=== PATIENT | female | born 1985 | race Caucasian/White ===

== ENCOUNTER 2019-08-03 15:44 | Emergency (ER) | payer OTHER, SELFPAY ==
[2019-08-03 15:55] VITALS: BP 132/76; PULSE 75; RESP 20; TEMP 36.8; O2SAT 100
--- NOTE | 2019-08-03 16:04 | ED.URI ---
HPI - URI/Sore Throat General Chief Complaint: Upper Respiratory Infection Stated Complaint: body aches/fever Time Seen by Provider: 08/03/19 16:05 Source: patient and RN notes reviewed Mode of arrival: ambulatory Limitations: no limitations History of Present Illness HPI Narrative: 34-year-old female presents with concern for fever, body aches, cough, rhinorrhea that started last night. Reports both of her children tested positive for influenza B. 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 elicited complaint: fever Related Data Home Medications Medication Instructions Recorded Confirmed hydrocodone-acetaminophen See Rx Instructions .ROUTE .COMPLEX 08/03/19 08/03/19 Allergies Allergy/AdvReac Type Severity Reaction Status Date / Time No Known Allergies Allergy Verified 11/08/18 11:37 Review of Systems Review of Systems: Narrative: CONSTITUTIONAL: Reports malaise, chills, sweats, or fever. EYES: Denies visual changes, redness, or discharge. ENT: Reports rhinorrhea, congestion. Denies sinus pain, otalgia and sore throat. CARDIOVASCULAR: Denies chest pain, palpitations, or edema. RESPIRATORY: Reports cough. Denies dyspnea. GASTROINTESTINAL: Denies abdominal pain, nausea, vomiting, diarrhea SKIN: Denies rash or itching. MUSCULOSKELETAL: Reports myalgia. NEUROLOGIC: Reports headache. All systems reviewed & are unremarkable except as noted in HPI and below PMFSH Social History Social History Gender identity (if verbalized by the patient): Female Comments At time of signature, agree with nursing past medical, surgical, social and family history. There is no relevant family history pertinent to the presenting complaint Exam Narrative: Exam Narrative: GENERAL: Well-appearing, well-nourished, and in no acute distress. HEAD: Normocephalic EYES: PERRLA, conjunctivae clear ENT: Nares clear, turbinates erythematous, clear discharge. Mucous membranes moist. TM pearly pagan with dull light reflex bilaterally; no tragal tenderness. Oropharynx not erythematous without lesions. Tonsils not enlarged and without exudate, no drooling, no hoarseness, no trismus, uvula midline. NECK: Supple. Cervical lymphadenopathy CHEST: Clear to auscultation, breath sounds equal. No wheezing, rhonchi, rales, or stridor. No respiratory distress, speaks in full sentences. HEART: Regular rate and rhythm. No murmur heard. Normal peripheral pulses. SKIN: Warm, dry, no rash. NEURO: Alert and oriented x3. PSYCH: Normal mood and affect Course Course Emergency Course: Patient is aware of diagnosis, understands and agrees to treatment plan. Anticipatory guidance given. Patient agrees to follow-up as directed and is aware of reasons to seek care at the emergency department. Portions of this record may have been created with voice recognition software Vital Signs Vital signs: Vital Signs Temperature 98.2 F 08/03/19 15:55 Pulse Rate 75 08/03/19 15:55 Respiratory Rate 20 08/03/19 15:55 Blood Pressure 132/76 08/03/19 15:55 Pulse Oximetry 100 08/03/19 15:55 Temperature 98.2 F 08/03/19 15:55 Pulse Rate 75 08/03/19 15:55 Respiratory Rate 20 08/03/19 15:55 Blood Pressure 132/76 08/03/19 15:55 Pulse Oximetry 100 08/03/19 15:55 Reviewed. MDM - URI/Sore Throat MDM Narrative Medical decision making narrative: Differential diagnosis considered: Strep pharyngitis, allergic rhinitis, upper respiratory tract infection, sinusitis, rhinosinusitis, nasopharyngitis. viral pharyngitis, otitis media, otitis externa, pneumonia, bronchitis, viral cough syndrome, viral syndrome, and influenza. Exam findings show no acute concerns or changes; patient is non-toxic appearing and is in no distress. Patient is appropriate for outpatient treatment and follow-up. Lab Data Attestation: I reviewed the patient's lab results. Labs: Influenza A Screen Negative Reference Range: Negative Influenza B Screen Negative
== END 2019-08-03 16:23 | disposition home or self-care (01) ==
PROVIDERS: Emergency Provider Nurse Practitioner; PCP Family Medicine
DX: Z20.828 Contact with and (suspected) exposure to other viral communicable diseases (principal); R50.9 Fever, unspecified; R52 Pain, unspecified; R05 Cough; J34.89 Other specified disorders of nose and nasal sinuses; Z79.891 Long term (current) use of opiate analgesic
CPT/HCPCS: 87804; 99213; G0463

== ENCOUNTER 2019-12-23 11:53 | Emergency (ER) | payer OTHER, SELFPAY ==
--- NOTE | ~2019-12-23 | XR_ITS ---
EXAMINATION: XR chest 1V portable EXAM DATE: 12/23/2019 12:44 INDICATION: Cough and congestion. TECHNIQUE: Portable AP frontal chest x-ray was obtained. Comparison is made to prior examination from 04/06/2018. FINDINGS: The lungs are clear. There are no pleural effusions. Cardiomediastinal silhouette is norm al. There is no pneumothorax suspected. The bones and soft tissues are unremarkable. IMPRESSION: Normal chest x-ray exam. Reviewed, dictated and finalized at location A. IMPRESSION: Normal chest x-ray exam.
[2019-12-23 12:00] VITALS: PULSE 108; RESP 18; TEMP 37.1; O2SAT 100
[2019-12-23 12:16] VITALS: O2SAT 98
--- NOTE | 2019-12-23 12:23 | ED.GENADULT ---
HPI - General Adult General Chief complaint: Upper Respiratory Infection <Baudilio Albrecht PA-C - Last Filed: 12/23/19 13:09> Stated complaint: cough, congestion, fever <Baudilio Albrecht PA-C - Last Filed: 12/23/19 13:09> Time Seen by Provider: 12/23/19 12:02 <Baudilio Albrecht PA-C - Last Filed: 12/23/19 13:09> Source: patient <Baudilio Albrecht PA-C - Last Filed: 12/23/19 13:09> Mode of arrival: ambulatory <Baudilio Albrecht PA-C - Last Filed: 12/23/19 13:09> Limitations: no limitations <Baudilio Albrecht PA-C - Last Filed: 12/23/19 13:09> History of Present Illness HPI narrative: Patient is a 34-year-old female who presents to emergency department for evaluation of upper respiratory symptoms for 3 days denies sick contacts patient was tested for COVID in the last 3 days found to be negative patient on arrival notes congestion rhinorrhea cough some fever patient has been taking [id number] medications with improvement. Patient denies vomiting diarrhea and on arrival is resting comfortably in the room in no distress <Baudilio Albrecht PA-C - Last Filed: 12/23/19 13:09> Related Data Home medications: Home Medications Medication Instructions Recorded Confirmed hydrocodone-acetaminophen See Rx Instructions .ROUTE .COMPLEX 08/03/19 08/03/19 <Baudilio Albrecht PA-C - Last Filed: 12/23/19 13:09> Allergies/adverse reactions: Allergies Allergy/AdvReac Type Severity Reaction Status Date / Time No Known Allergies Allergy Verified 12/23/19 12:03 <Baudilio Albrecht PA-C - Last Filed: 12/23/19 13:09> Review of Systems Review of Systems: All systems reviewed & are unremarkable except as noted in HPI and below <Baudilio Albrecht PA-C - Last Filed: 12/23/19 13:09> [facility] Social History Social History: Social History Gender identity (if verbalized by the patient): Female <DUSTY Bo Last Filed: 12/23/19 13:09> Exam Narrative: Exam Narrative: GENERAL: Well-appearing, well-nourished, and in no acute distress. HEAD: Normocephalic, atraumatic. EYES: PERRLA and EOMI. ENT: Nares clear, no rhinorrhea or epistaxis. Mucous membranes moist. NECK: Supple. No adenopathy or masses. CHEST: Clear to auscultation. No respiratory distress. No wheezes rales or rhonchi HEART: Regular rate and rhythm. No murmur heard. EXTREMITIES: Normal range of motion. No edema. SKIN: Warm, dry, no rash. NEURO: No focal deficits. Alert and oriented x3. Cranial nerves II through XII grossly intact PSYCH: Normal mood and affect. <Baudilio Albrecht PA-C - Last Filed: 12/23/19 13:09> Course Course Emergency Course: Patient is a 34-year-old female who presents to emergency department for URI symptoms no high risk changes in the blood work or imaging no pneumonia felt appropriate for outpatient reevaluation <Baudilio Albrecht PA-C - Last Filed: 12/23/19 13:09> Vital Signs Vital signs: Vital Signs Temperature 98.7 F 12/23/19 12:00 Pulse Rate 108 H 12/23/19 12:00 Respiratory Rate 18 12/23/19 12:00 Pulse Oximetry 100 12/23/19 12:00 Temperature 98.7 F 12/23/19 12:00 Pulse Rate 70 12/23/19 13:27 Respiratory Rate 12 12/23/19 13:27 Blood Pressure 119/73 12/23/19 13:27 Pulse Oximetry 99 12/23/19 13:27 <Baudilio Albrecht PA-C - Last Filed: 12/23/19 13:09> Vital Signs Temperature 98.7 F 12/23/19 12:00 Pulse Rate 108 H 12/23/19 12:00 Respiratory Rate 18 12/23/19 12:00 Pulse Oximetry 100 12/23/19 12:00 Temperature 98.7 F 12/23/19 12:00 Pulse Rate 70 12/23/19 13:27 Respiratory Rate 12 12/23/19 13:27 Blood Pressure 119/73 12/23/19 13:27 Pulse Oximetry 99 12/23/19 13:27 <Saundra Tobar MD - Last Filed: 12/23/19 14:04> Medical Decision Making MDM Narrative Medical decision making narrative: Patient in the room at this
[2019-12-23 12:30] VITALS: BP 117/76; PULSE 93; RESP 19; O2SAT 98
[2019-12-23] MEDS: FAMOTIDINE 20 MG/2 ML VIAL IV PUSH (12:31)
[2019-12-23] MEDS: SODIUM CHLORIDE 0.9% IV 1,000 ML 999 ML IV CONT (12:31)
[2019-12-23 12:32] LABS: Basophils Percent Auto 0.3 % (0.2-1.2); Eosinophils Absolute Auto 0.1 K/mm3 (0-0.3); Eosinophils Percent Auto 0.8 % (0-4.4); Hematocrit 35.2 % (37.0-47.0); Hemoglobin 10.5 g/dL (12.0-15.0); Immature Granulocyte Absolute 0.02 K/mm3 (0.00-0.031); Immature Granulocyte Percent A 0.3 % (0-0.5); Immature Platelet Fraction Pct 3.5 % (0.9-11.2); Lymphocytes Absolute Auto 1.37 K/mm3 (0.9-3.2); Lymphocytes Percent Auto 21.3 % (18.3-44.2); Mean Corpuscular HGB Conc 29.8 g/dl (32-36); Mean Corpuscular Hemoglobin 22.7 pg (26-34); Mean Platelet Volume 11.4 fl (7.4-10.4); Monocytes Absolute Auto 0.6 K/mm3 (0.1-0.6); Monocytes Percent Auto 9.2 % (2.6-8.5); Neutrophils Absolute Auto 4.4 K/mm3 (1.3-6.7); Neutrophils Percent Auto 68.1 % (45.5-73.1); Platelet Count Result 246 k/mm3 (150-375); Red Blood Count 4.63 M/mm3 (4.2-5.4); Red Cell Distribution Width 16.5 % (11.5-14.5); White Blood Count 6.4 K/mm3 (4.5-10.0)
[2019-12-23 12:42] LABS: Alanine Aminotransferase 25 U/L (4-35); Albumin Level 4.3 g/dL (3.5-5.1); Alkaline Phosphatase 100 U/L (38-126); Anion Gap 12.7 mmol/L (7-16); Aspartate Amino Transferase 28 U/L (14-36); Bilirubin,Total 0.3 mg/dL (0.2-1.3); Blood Urea Nitrogen 9 mg/dL (7-17); Calcium 8.6 mg/dL (8.4-10.2); Carbon Dioxide 25 mmol/L (22-30); Chloride 105 mmol/L (98-107); Estimated CRCL calculation 106 ml/min; Estimated Glomerular Filt Rate > 60; Glucose 91 mg/dL (65-105); Potassium 3.7 mmol/L (3.4-5.0); Sodium 139 mmol/L (137-145)
[2019-12-23 12:44] LABS: Lactic Acid Reflex 1.1 mmol/L (0.7-2.1)
[2019-12-23 12:53] LABS: Add Urine Microscopic? YES; Appearance Urine Cloudy (Clear); Bilirubin Urine Negative (Negative); Blood Urine 1+ (Negative); Color Urine Yellow (Yellow); Glucose Urine UA Negative (Negative); Ketones Urine Negative (Negative); Leukocyte Esterase Ur 1+ LEU/UL (Negative); Mucus Urine Heavy /lpf; Nitrate Urine Negative (Negative); Protein Urine Negative (Negative); Specific Grav Ur 1.023 (1.001-1.035); Squamous Epithelial Cell Urine Many /hpf (Few); Urobilinogen Urine Negative mg/dL (<2.0)
[2019-12-23 13:00] LABS: CRP 2.8 mg/dL (<1.0)
[2019-12-23 13:27] VITALS: BP 119/73; PULSE 70; RESP 12; O2SAT 99
== END 2019-12-23 13:28 | disposition home or self-care (01) ==
PROVIDERS: Emergency Medicine Emergency Medical Services; Emergency Provider Emergency Medicine; PCP Family Medicine
DX: J06.9 Acute upper respiratory infection, unspecified (principal)
CPT/HCPCS: 36415; 71045; 80053; 81001; 81025; 83605; 85025; 85055; 86140; 87040; 87086; 87088; 96361; 96374; 99284; J7030

== ENCOUNTER 2020-04-21 15:29 | Outpatient (CLI) | payer OTHER, SELFPAY ==
--- NOTE | ~2020-04-21 | US_ITS ---
EXAMINATION: US pelvic complete w TV DATE: 04/21/2020 16:11 INDICATION: Menorrhagia TECHNIQUE: Multiple transabdominal and endovaginal sonographic images of the pelvis were obtained. COMPARISON: None. FINDINGS: The uterus measures 9.5 x 4.9 x 6.7 cm. The endometrial complex measures 17 mm in thickness. The rig ht ovary which may have been resected as patient describes a prior ovarian cyst removal in 2009. The left ovary measures 4.4 x 3.5 x 2.2 cm and contains a 1.8 cm anechoic cyst/follicle. Vascular flow is identified in the left ovary on color Doppler. There is no free fluid in the pelvis. IMPRESSION: 1. Endometrial complex thickness of 17 mm which would be at the upper limits of normal for the secret ory phase. Correlate with menstrual cycle and as clinically indicated could consider either hysterosc opy or repeat imaging at a different phase in the cycle. 2. Nonvisualized right ovary, potentially surgically absent although provided surgical history is ind eterminate. Reviewed, dictated and finalized at location H. DER HELPER IMPRESSION: 1. Endometrial complex thickness of 17 mm which would be at the upper limits of normal for the secretory phase. Correlate with menstrual cycle and as clinical ly indicated could consider either hysteroscopy or repeat imaging at a differen t phase in the cycle. 2. Nonvisualized right ovary, potentially surgically absent although provided s urgical history is indeterminate.
== END 2020-04-21 15:30 | disposition home or self-care (01) ==
PROVIDERS: PCP Family Medicine; Visit Provider Nurse Practitioner
DX: N92.0 Excessive and frequent menstruation with regular cycle (principal)
CPT/HCPCS: 76830; 76856

== ENCOUNTER 2020-08-10 19:34 | Emergency (ER) | payer OTHER, SELFPAY ==
[2020-08-10 19:49] VITALS: BP 126/79; PULSE 84; RESP 20; TEMP 36.3; O2SAT 100
--- NOTE | 2020-08-10 20:05 | ED.URI ---
HPI - URI/Sore Throat General Chief Complaint: Upper Respiratory Infection Stated Complaint: Cough,Congestion Time Seen by Provider: 08/10/20 19:53 Source: patient and RN notes reviewed Mode of arrival: ambulatory Limitations: no limitations History of Present Illness HPI Narrative: Patient presents today with a 1 week history of nasal congestion, frontal headache, sinus pressure, productive cough, shortness of breath with exertion. Denies fever, sore throat, nausea, vomiting, diarrhea. She has had both of her COVID-19 vaccinations and finish them over a month ago. She has been using Sudafed, Tylenol Cold and flu with relief. Cough is not keeping her awake at night. History of asthma. Normally she does not use her rescue inhaler, but she has had to use it a couple of times in the last few days. Related Data Allergies Allergy/AdvReac Type Severity Reaction Status Date / Time No Known Allergies Allergy Verified 08/10/20 19:44 Review of Systems Review of Systems: Narrative: CONSTITUTIONAL: Denies body aches, fever, chills, or sweats. EYES: Denies visual changes, redness, or discharge. ENT: Denies rhinorrhea, sore throat, or otalgia. + Nasal congestion, sinus pressure CARDIOVASCULAR: Denies chest pain, palpitations, or edema. RESPIRATORY: + Productive cough, shortness of breath exertion GASTROINTESTINAL: Denies abdominal pain, nausea, vomiting, or diarrhea. GENITOURINARY: Denies dysuria or hematuria. SKIN: Denies rash, itching, or wounds. MUSCULOSKELETAL: Denies back pain, joint pain, or myalgia. NEUROLOGIC: Denies numbness, tingling, or weakness. + Headache PSYCH: Denies depression or anxiety. PMF Past Medical History Medical History Anemia History of x2 History of ovarian cyst Pneumonia Surgical History Surgical History History of section x 4 History of laparoscopy x 2 History of right oophorectomy Family History Family History Grandparent Breast cancer Other Breast cancer Social History Social History Smoking status: Never smoker Alcohol intake: current Substance use: never Gender identity (if verbalized by the patient): Female Comments At time of signature, I have reviewed and agree with nursing past medical, surgical, social and family history unless otherwise noted. Please see nursing chart for further information. There is no relevant family history pertinent to the presenting complaint Exam Narrative: Exam Narrative: GENERAL: Well-appearing, well-nourished, and in no acute distress. HEAD: Normocephalic, atraumatic. EYES: EOMI. No redness or drainage. Conjunctivae normal. ENT: Mucous membranes pink and moist. Nares congested with purulent discharge. No rhinorrhea. TMs normal bilaterally. Throat normal. Uvula midline. NECK: Normal AROM. Supple. No lymphadenopathy. CHEST: No respiratory distress. Clear to auscultation. HEART: Regular rate and rhythm. No murmur appreciated. Normal peripheral pulses. EXTREMITIES: Normal range of motion. No edema. SKIN: Warm, dry, no rash. Capillary refill normal. Normal skin turgor. NEURO: No focal deficits. Alert and oriented x3. Gait steady. PSYCH: Normal affect. No signs of depression or anxiety. Course Vital Signs Vital signs: Vital Signs Temperature 97.4 F L 08/10/20 19:49 Pulse Rate 84 08/10/20 19:49 Respiratory Rate 20 08/10/20 19:49 Blood Pressure 126/79 08/10/20 19:49 Pulse Oximetry 100 08/10/20 19:49 Temperature 97.4 F L 08/10/20 19:49 Pulse Rate 84 08/10/20 19:49 Respiratory Rate 20 08/10/20 19:49 Blood Pressure 126/79 08/10/20 19:49 Pulse Oximetry 100 08/10/20 19:49 Reviewed. Pt has been instructed to follow up with her PCP regardi
== END 2020-08-10 20:14 | disposition home or self-care (01) ==
PROVIDERS: Emergency Provider Nurse Practitioner; PCP Family Medicine
DX: J32.9 Chronic sinusitis, unspecified (principal); J40 Bronchitis, not specified as acute or chronic
CPT/HCPCS: 99213; G0463

== ENCOUNTER 2022-04-01 09:09 | Outpatient (CLI) | payer OTHER, SELFPAY ==
--- NOTE | ~2022-04-01 | NM_ITS ---
EXAMINATION: NM bone scan limited area DATE: 04/01/2022 13:52 INDICATION: Dysfunction of rib cage TECHNIQUE: 24.2 mCi Tc-99m HDP was administered intravenously. Delayed whole-body scintigrams were o btained. COMPARISON: Chest radiograph dated 12/23/2019. No more recent imaging available for comparison. FINDINGS: There is increased uptake extending for a short distance along the lateral right 10th rib. No evident correlate on the chest radiograph. No other suspicious bone lesions. IMPRESSION: 1. Indeterminate region of increased uptake along the lateral right 10th rib with no correlate on rad iographs from 2 years prior. Correlate with any more recent imaging and if unavailable would consider rib radiographs or CT for correlation. Reviewed, dictated and finalized at location B. IMPRESSION: 1. Indeterminate region of increased uptake along the lateral right 10th rib wi th no correlate on radiographs from 2 years prior. Correlate with any more rece nt imaging and if unavailable would consider rib radiographs or CT for correlat ion.
== END 2022-04-01 09:10 | disposition home or self-care (01) ==
PROVIDERS: PCP Family Medicine; Visit Provider Nurse Practitioner Adult Health
DX: M99.08 Segmental and somatic dysfunction of rib cage (principal)
CPT/HCPCS: 78300; A9561

== ENCOUNTER 2022-07-08 10:24 | Outpatient (CLI) | payer OTHER, SELFPAY ==
--- NOTE | ~2022-07-08 | XR_ITS ---
Clinical Indication: Pulmonary edema, viral infection PA and lateral views of the chest: Comparison: 12/23/2019 Findings: Stable 11 mm nodular opacity right upper lobe. Lungs are otherwise clear. Cardiomediastina l silhouette is within normal limits. Bones and soft tissues are unremarkable. Impression: Stable 11 mm right upper lobe nodular opacity. Stability over this time intervals compatible with torres ignity. Otherwise clear lungs. Reviewed, dictated and finalized at location M. ITURE SANDER Impression: Stable 11 mm right upper lobe nodular opacity. Stability over this time interva ls compatible with benignity. Otherwise clear lungs.
== END 2022-07-08 10:25 | disposition home or self-care (01) ==
PROVIDERS: PCP Family Medicine; Visit Provider Nurse Practitioner Adult Health
DX: J81.1 Chronic pulmonary edema (principal); B34.9 Viral infection, unspecified
CPT/HCPCS: 71046

== ENCOUNTER 2022-07-08 11:00 | Emergency (ER) | payer OTHER, SELFPAY ==
--- NOTE | ~2022-07-08 | CT_ITS ---
EXAMINATION: CT facial bones w con DATE: 07/08/2022 15:28 INDICATION: Left-sided antalgic and swelling TECHNIQUE: Computed tomography (CT) of the facial bones and maxillofacial region was performed with 7 5 cc of Omnipaque 350 intravenous contrast. The dose-length product (DLP) was 272.57 mGy-cm. Automate d exposure control and iterative reconstruction technique were employed. COMPARISON: None. FINDINGS: There is near complete opacification of the left maxillary sinus. A polyp or mucous retenti on cyst is seen posterior medially in the right maxillary sinus. There is mild mucosal thickening of the ethmoidal air cells on the left. A tiny polyp or mucous retention cyst is seen in the left spheno id sinus. The frontal sinuses are hypoplastic. There is periapical abscess of the first left maxillar y molar. There is left maxillary soft tissue swelling without identifiable soft tissue abscess. IMPRESSION: 1. Left maxillary soft tissue swelling without identifiable soft tissue abscess. 2. Periapical abscess of the left first maxillary molar. 3. Sinus disease. Reviewed, dictated and finalized at location B. HEALTH CARE CASE MANAGER IMPRESSION: 1. Left maxillary soft tissue swelling without identifiable soft tissue abscess . 2. Periapical abscess of the left first maxillary molar. 3. Sinus disease.
[2022-07-08 11:13] VITALS: BP 135/95; PULSE 75; RESP 16; TEMP 36.6; O2SAT 100
--- NOTE | 2022-07-08 13:47 | ED.URI ---
HPI - URI/Sore Throat General Chief Complaint: Upper Respiratory Infection Stated Complaint: sick X5 days-sinus infection Time Seen by Provider: 07/08/22 12:29 Source: patient Mode of arrival: ambulatory Limitations: no limitations History of Present Illness HPI Narrative: This is a 37 year old female that presents to the ER for cold symptoms ongoing over the last couple of days. Reports she is currently on an antibiotic for a sinus infection. Reports fever, cough, congestion. Reports she has also been having a toothache as well. Reports swelling of the area. Denies shortness of breath. Related Data Allergies Allergy/AdvReac Type Severity Reaction Status Date / Time No Known Allergies Allergy Verified 07/08/22 11:45 Review of Systems Review of Systems: CONSTITUTIONAL: Reports fever ENT: Reports rhinorrhea, congestion, dentalgia RESPIRATORY: Reports cough. Denies dyspnea. All systems reviewed & are unremarkable except as noted in HPI and below PMFSH Past Medical History Medical History Anemia History of x2 History of ovarian cyst Pneumonia Surgical History Surgical History History of section x 4 History of laparoscopy x 2 History of right oophorectomy Family History Family History Grandparent Breast cancer Other Breast cancer Social History Social History Smoking status: Never smoker Alcohol intake: current Substance use: never Gender identity (if verbalized by the patient): Female Exam Narrative: GENERAL: Well-appearing, well-nourished, and in no acute distress. HEAD: Normocephalic, atraumatic. EYES: EOMI. ENT: Nares clear, no rhinorrhea or epistaxis. Mucous membranes moist. Oropharynx without tonsillar hypertrophy exudate or other lesions. Bilateral TMs pearly pagan non-bulging. Swelling noted about teeth 12, 13 and 14. No obvious fluctuance to suggest abscess NECK: Supple. No adenopathy or masses. CHEST: Clear to auscultation. No respiratory distress. No wheezes rales or rhonchi HEART: Regular rate and rhythm. No murmur heard. Normal peripheral pulses. EXTREMITIES: Normal range of motion. No edema. SKIN: Warm, dry, no rash. NEURO: No focal deficits. Alert and oriented x3. PSYCH: Normal mood and affect Course Course Emergency Course: Patient updated on work-up and agrees with plan of care Vital Signs Vital signs: Vital Signs Temperature 97.9 F 07/08/22 11:13 Pulse Rate 75 07/08/22 11:13 Respiratory Rate 16 07/08/22 11:13 Blood Pressure 135/95 H 07/08/22 11:13 Pulse Oximetry 100 07/08/22 11:13 Temperature 97.9 F 07/08/22 11:13 Pulse Rate 75 07/08/22 11:13 Respiratory Rate 16 07/08/22 11:13 Blood Pressure 135/95 H 07/08/22 11:13 Pulse Oximetry 100 07/08/22 11:13 MDM - URI/Sore Throat MDM Narrative Medical decision making narrative: Patient presents to the emergency department for sinus pain as well as tooth ache. Ongoing over the last several days. She was started on clarithromycin by her primary with little relief. She is afebrile and nontoxic-appearing. There was no obvious fluctuance on exam to suggest an abscess. CBC is without leukocytosis. Face CT shows left maxillary soft tissue swelling without identifiable soft tissue abscess. She does have a periapical abscess of the left first maxillary molar and sinus disease. Once again no obvious abscess on exam. Patient will be changed to Augmentin and instructed to have some follow-up with her primary doctor. She was given warnings to return to the ER Differential Diagnosis Differential diagnosis: Likely upper respiratory infection, sinusitis, viral infection and other (odontogenic infection, abscess) Medical Records Attestation: I
[2022-07-08 14:21] LABS: Basophils Percent Auto 0.3 % (0.2-1.2); Eosinophils Percent Auto 0.4 % (0-4.4); Hematocrit 34.6 % (37.0-47.0); Hemoglobin 10.3 g/dL (12.0-15.0); Immature Granulocyte Absolute 0.04 K/mm3 (0.00-0.031); Immature Granulocyte Percent A 0.6 % (0-0.5); Lymphocytes Absolute Auto 1.36 K/mm3 (0.9-3.2); Mean Corpuscular HGB Conc 29.8 g/dl (32-36); Mean Corpuscular Hemoglobin 23.8 pg (26-34); Mean Corpuscular Volume 80.1 fl (80-100); Mean Platelet Volume 11.1 fl (7.4-10.4); Monocytes Absolute Auto 0.4 K/mm3 (0.1-0.6); Neutrophils Absolute Auto 5.3 K/mm3 (1.3-6.7); Neutrophils Percent Auto 73.7 % (45.5-73.1); Platelet Count Result 176 k/mm3 (150-375); Red Blood Count 4.32 M/mm3 (4.2-5.4); Red Cell Distribution Width 15.4 % (11.5-14.5); White Blood Count 7.2 K/mm3 (4.5-10.0)
[2022-07-08] MEDS: KETOROLAC 15 MG/ML VIAL (*BKC) IV PUSH (14:24)
[2022-07-08 14:28] LABS: Anion Gap 9 mmol/L (8-16); Blood Urea Nitrogen 10 mg/dL (7-17); Calcium 8.4 mg/dL (8.4-10.2); Carbon Dioxide 25 mmol/L (22-30); Chloride 109 mmol/L (98-107); Estimated CRCL calculation 103 ml/min; Estimated Glomerular Filt Rate > 60; Glucose 92 mg/dL (65-110); Potassium 3.5 mmol/L (3.4-5.0); Sodium 143 mmol/L (137-145)
[2022-07-08 14:35] LABS: Hypochromasia 1+ (NORMAL); Ovalocytes 1+ (NORMAL); Platelet Estimate Adequate (Adequate); Schistocytes None Seen (NORMAL)
[2022-07-08] MEDS: AMOXICILLIN/CLAVULANATE K 875-125 MG TAB 1 TABLET PO (16:16)
== END 2022-07-08 16:34 | disposition home or self-care (01) ==
PROVIDERS: Emergency Provider Physician Assistant; PCP Family Medicine
DX: K08.89 Other specified disorders of teeth and supporting structures (principal); J01.00 Acute maxillary sinusitis, unspecified; K04.7 Periapical abscess without sinus; D64.9 Anemia, unspecified; Z87.01 Personal history of pneumonia (recurrent); Z90.721 Acquired absence of ovaries, unilateral
CPT/HCPCS: 36415; 70487; 71046; 80048; 81025; 85025; 96374; 99284; A9270; J1885; Q9967

== ENCOUNTER 2023-01-07 16:55 | Emergency (ER) | payer OTHER, SELFPAY ==
--- NOTE | ~2023-01-07 | XR_ITS ---
EXAM: XR ankle LT min 3V DATE: 01/07/2023 17:17 HISTORY: left lateral ankle pain s/p injury today . COMPARISON: None available. FINDINGS: Normal mineralization. No fracture or dislocation. No lytic or blastic lesion. Joint space s are maintained. No erosion or periosteal change. Mild lateral soft tissue swelling. IMPRESSION: No acute osseous finding in the left ankle. Reviewed, dictated and finalized at location K.
[2023-01-07 17:04] VITALS: BP 123/84; PULSE 88; RESP 16; TEMP 37.4; O2SAT 99
--- NOTE | 2023-01-07 17:15 | ED.LOWEXIN ---
HPI - Extremity Injury (Lower) General Chief Complaint: Extremity Injury, Lower Stated Complaint: Left Ankle Pain Source: patient Mode of arrival: ambulatory Limitations: no limitations History of Present Illness HPI Narrative: 37-year-old female presented for complaint of left ankle pain and swelling after injury today. States she fell about 3 feet off of her porch and rolled the left ankle, inverting the foot. Reports she had some numbness and tingling which has improved. Pain to ankle (lateral) is worse when walking. Took ibuprofen. Related Data Home Medications Medication Instructions Recorded Confirmed ergocalciferol (vitamin D2) 1,250 1,250 mcg DIRECTED 01/07/23 01/07/23 mcg (50,000 unit) capsule hydrocodone 5 mg-acetaminophen 325 1 tablet DIRECTED 01/07/23 01/07/23 mg tablet Allergies Allergy/AdvReac Type Severity Reaction Status Date / Time No Known Allergies Allergy Verified 07/08/22 11:45 Review of Systems Review of Systems: CONSTITUTIONAL: Denies body aches, fever, chills EYES: Denies visual changes ENT: Denies rhinorrhea, congestion CARDIOVASCULAR: Denies chest pain, palpitations, or edema. RESPIRATORY: Denies cough or dyspnea. GASTROINTESTINAL: Denies abdominal pain, nausea, vomiting, or diarrhea. SKIN: Denies rash, itching, or wounds. MUSCULOSKELETAL: Reports left ankle pain and swelling denies back pain, or myalgia. NEUROLOGIC: Denies headache, numbness, tingling, or weakness. PSYCH: Denies depression or anxiety. All systems reviewed & are unremarkable except as noted in HPI and below PMFSH Past Medical History Medical History Anemia History of x2 History of ovarian cyst Pneumonia Surgical History Surgical History History of section x 4 History of laparoscopy x 2 History of right oophorectomy Family History Family History Grandparent Breast cancer Other Breast cancer Social History Social History Smoking status: Never smoker Alcohol intake: current Substance use: never Gender identity (if verbalized by the patient): Female Comments At time of signature, I have reviewed and agree with nursing past medical, surgical, social and family history unless otherwise noted. Please see nursing chart for further information. There is no relevant family history pertinent to the presenting complaint Exam Narrative: GENERAL: Well-appearing, well-nourished, and in no acute distress. HEAD: Normocephalic, atraumatic. EYES: PERRLA, conjunctivae clear NECK: Supple. CHEST: Speaks in full sentences. No respiratory distress. HEART: Regular rate and rhythm. Normal and equal peripheral pulses. EXTREMITIES:Left lateral ankle with mild swelling, tenderness to lateral malleolus. Foot has normal strength and sensation, slightly limited range of motion at ankle due to pain with movement. No ecchymosis, No open wounds, or obvious deformity; alignment normal, pulse palpable and equal bilaterally, skin warm, dry, pink. Capillary refill less than 3 seconds. SKIN: Warm, dry, no rash. NEURO: Alert and oriented x3. PSYCH: Normal mood and affect Course Course Emergency Course: Patient is aware of diagnosis, understands and agrees to treatment plan. Anticipatory guidance given. Patient agrees to follow-up as directed and is aware of reasons to seek care at the emergency department. Portions of this record may have been created with voice recognition software Level of Care: Express Care Visit Vital Signs Vital signs: Vital Signs Temperature 99.4 F 01/07/23 17:04 Pulse Rate 88 01/07/23 17:04 Respiratory Rate 16 01/07/23 17:04 Blood Pressure 123/84 01/07/23 17:04 Pulse Oximetry 99 01/07/23 17:04 Oxygen
== END 2023-01-07 17:33 | disposition home or self-care (01) ==
PROVIDERS: Emergency Provider Nurse Practitioner Family; PCP Family Medicine
DX: S93.402A Sprain of unspecified ligament of left ankle, initial encounter (principal); S96.912A Strain of unspecified muscle and tendon at ankle and foot level, left foot, initial encounter; W17.89XA Other fall from one level to another, initial encounter
CPT/HCPCS: 73610; 99213; G0463

== ENCOUNTER 2023-04-28 09:58 | Emergency (ER) | payer OTHER, SELFPAY ==
[2023-04-28 10:18] VITALS: BP 110/72; PULSE 108; RESP 16; TEMP 37.7; O2SAT 100
--- NOTE | 2023-04-28 10:34 | ED.URI ---
HPI - URI/Sore Throat General Chief Complaint: Upper Respiratory Infection Stated Complaint: sore throat,body aches Time Seen by Provider: 04/28/23 10:34 Source: patient Mode of arrival: ambulatory Limitations: no limitations History of Present Illness HPI Narrative: 37-year-old female presents with complaint of sore throat, headache, body aches, fatigue for 2 days. Taking Tylenol ibuprofen to treat pain. Denies nausea vomiting diarrhea. All systems reviewed and negative except as noted above. Related Data Home Medications Medication Instructions Recorded Confirmed ergocalciferol (vitamin D2) 1,250 1,250 mcg DIRECTED 01/07/23 04/28/23 mcg (50,000 unit) capsule hydrocodone 5 mg-acetaminophen 325 1 tablet DIRECTED 01/07/23 04/28/23 mg tablet Allergies Allergy/AdvReac Type Severity Reaction Status Date / Time No Known Allergies Allergy Verified 04/28/23 10:22 Review of Systems Review of Systems: CONSTITUTIONAL: Reports fever, chills, or sweats. EYES: Denies visual changes, redness, or discharge. ENT: Denies rhinorrhea, congestion. Reports sore throat. Denies otalgia. CARDIOVASCULAR: Denies chest pain, palpitations, or edema. RESPIRATORY: Denies cough or dyspnea. GASTROINTESTINAL: Denies abdominal pain, nausea, vomiting, or diarrhea. GENITOURINARY: Denies dysuria or hematuria. SKIN: Denies rash or itching. MUSCULOSKELETAL: Denies back pain, joint pain, or myalgia. NEUROLOGIC: Denies headache, numbness, or weakness. PSYCHIATRIC: Denies anxiety or depression. All other systems reviewed are negative, except as documented in HPI. [facility] Past Medical History Medical History Anemia History of x2 History of ovarian cyst Pneumonia Surgical History Surgical History History of section x 4 History of laparoscopy x 2 History of right oophorectomy Family History Family History Grandparent Breast cancer Other Breast cancer Social History Social History Smoking status: Never smoker Alcohol intake: current Substance use: never Gender identity (if verbalized by the patient): Female Comments At time of signature, agree with nursing past medical, surgical, social and family history. There is no relevant family history pertinent to the presenting complaint. Exam Narrative: GENERAL: This is a well-nourished, well-developed patient, in no apparent distress. ill-appearing but in no acute distress. HEAD: normocephalic, atraumatic. EYES: PERRL. Sclera clear/white. Vision is grossly intact. EARS: External ears normal, auditory canals clear and without drainage, TMs normal without perforation. Hearing grossly intact. NOSE: External nose normal with no obvious nasal discharge, nares without redness, no rhinorrhea. THROAT: Mucous membranes moist, Erythema to posterior pharynx without swelling or exudates. NECK: Neck supple, non-tender without lymphadenopathy, masses or thyromegaly. CARDIOVASCULAR: Regular rate and rhythm without murmurs, gallops, or rubs. RESPIRATORY: Clear to auscultation. Breath sounds equal bilaterally. No wheezes, rales, or rhonchi. SKIN: warm, Dry, intact with no suspicious lesions or rash, good texture and turgor. NEURO: awake, alert, and oriented to person, place and time. There were no obvious focal neurologic abnormalities. EXTREMITIES: No joint tenderness, effusion, or edema noted. Course Course Level of Care: Express Care Visit Vital Signs Vital signs: Vital Signs Temperature 37.7 C H 04/28/23 10:18 Pulse Rate 108 H 04/28/23 10:18 Respiratory Rate 16 04/28/23 10:18 Blood Pressure 110/72 04/28/23 10:18 Pulse Oximetry 100 04/28/23 10:18 Temperature 37.7 C H 04/28/23 10:18 Pulse Rat
== END 2023-04-28 10:53 | disposition home or self-care (01) ==
PROVIDERS: Emergency Provider Nurse Practitioner Family; PCP Family Medicine
DX: J02.0 Streptococcal pharyngitis (principal); Z79.891 Long term (current) use of opiate analgesic
CPT/HCPCS: 87804; 87880; 99213; G0463

== ENCOUNTER 2023-05-22 09:47 | Outpatient (CLI) | payer OTHER, SELFPAY ==
--- NOTE | ~2023-05-22 | US_ITS ---
Abdominal Sonogram: Real-time sonographic imaging of the abdomen was performed. Clinical History: Abdominal pain Findings: The liver appears normal with no evidence of mass lesion or bile duct dilatation. Main por freida vein demonstrates normal direction of flow. The spleen is normal in size without evidence of foca l lesion. The gallbladder is well distended, and appears normal with no evidence of gallstone or wal l thickening. The common bile duct measures 3 mm. The visualized pancreas, aorta, and IVC are unrema rkable. The right kidney measures 9.3 cm in length and the left kidney measures 10.8 cm. There is n o hydronephrosis or renal calculus. Impression: Unremarkable abdominal ultrasound. Reviewed, dictated and finalized at location M. [employer] Impression: Unremarkable abdominal ultrasound.
== END 2023-05-22 09:48 | disposition home or self-care (01) ==
LOC: ANHIMG 09:56
PROVIDERS: PCP Family Medicine; Visit Provider Nurse Practitioner Adult Health
DX: R10.0 Acute abdomen (principal)
CPT/HCPCS: 76700

== ENCOUNTER 2023-08-27 01:53 | Day surgery (SDC) | payer OTHER, SELFPAY ==
[2023-08-20 12:34] VITALS: BMI 31.9
--- NOTE | 2023-08-20 12:39 | PC.NURSE ---
Report to the Outpatient Waiting Room, entrance under the green pavilion located off [facility], at time 1100 on date 08/27/23. Planned Procedure Time: 1300. Time changes happen often and if your time is changed the preop area will call you the afternoon before. - You and your visitor will be asked to self-screen and do not enter if you have any COVID symptoms. - A mask is optional within the hospital at this time. Patients may have clear liquids (water, carbonated beverages, clear teas, apple juice) until 3 hours prior to surgery with a maximum of 20 ounces. - No food from midnight until time of surgery Take the following medications with a SIP of water the morning of surgery: PAIN PILL IF NEEDED DO NOT STOP ANY OF YOUR OTHER PRESCRIPTION MEDICATIONS PRIOR TO SURGERY ?EXCEPT THE FOLLOWING Medications to discontinue per physician: N/A Date to take last dose: N/A Please no make-up, nail gambian, hairspray, perfume, deodorant, or body powder the day of surgery. No jewelry (including any body piercings) or valuables the day of surgery, leave them at home. Please take a shower or bath the night before, or the morning of, surgery with an antibacterial soap. Wear comfortable, loose fitting clothing. - Jewelry must be removed prior to entering the operating room. Rings and piercings that are not removed may be cut off. - The hospital will not accept responsibility for valuables. - Please leave all valuables, including medications, at home the day of surgery. If you are going home after surgery, a licensed tank wagon driver must drive you home. - NO public transportation without another adult if you receive anesthesia. - We recommend that an adult stay with you for 24 hours following discharge. - We also recommend that you do not drive, make important decision, drink alcoholic beverages, or take any drugs that were not prescribed by your health care provider for at least 24 hours after your discharge time. Follow any additional instructions given to you from your surgeon. If you or anyone in your household have experienced Covid symptoms in the past week, please notify your surgeon or the nurse liaison at the phone number below for possible testing. Telephone instructions given to JONI VALDES and asked if any additional questions and then verbalized understanding. Patient advised to call surgeon office or pre surgery nurse liaison [phone] if any additional questions.
[2023-08-27 11:26] VITALS: BP 110/74; PULSE 65; RESP 18; TEMP 37; O2SAT 100
[2023-08-27] MEDS: ACETAMINOPHEN 500 MG TABLET 1000 MG PO (11:29)
[2023-08-27] MEDS: LACTATED RINGERS 1,000 ML 30 ML IV CONT (11:30)
--- NOTE | 2023-08-27 12:18 | P.PNAN_ITS ---
Anes - Initial Pre Proc Eval Procedure: Operation Date: 08/27/23 13:00 Proposed Procedures p Hysteroscopy Dilation and Curettage - Keshawn Mejía MD Date/Time: 08/27/23 12:18 Surgeon: Keshawn Mejía MD Pre Op Diagnosis: Abnormal Uterine bleeding Patient Data Age: 38 Gender: F Height: 1.63 m Weight: 85.2 kg Last Vital Signs Temp 37.0 C 08/27/23 11:26 Pulse 65 08/27/23 11:26 Resp 18 08/27/23 11:26 BP 110/74 08/27/23 11:26 Pulse Ox 100 08/27/23 11:26 O2 Del Method Room Air 08/27/23 11:26 Allergies Allergy/AdvReac Type Severity Reaction Status Date / Time No Known Allergies Allergy Verified 08/27/23 11:25 Home Medications Medication Instructions Recorded Confirmed Type hydrocodone 5 mg-acetaminophen 325 1 tablet PO BID PRN Pain 08/20/23 08/20/23 History mg tablet Patient hx anesthesia problems: none Family hx anesthesia problems: none Results Review: All pre-operative results and documents have been reviewed as part of the pre- operative evaluation. [facility] Past Medical History Medical History Anemia History of x2 History of ovarian cyst Pneumonia Surgical History Surgical History History of section x 4 History of laparoscopy x 2 History of right oophorectomy Family History Family History Grandparent Breast cancer Other Breast cancer Social History Social History Smoking status: Never smoker Alcohol intake: never Substance use: never Substance use type: does not use Living arrangements: with family Gender identity (if verbalized by the patient): Female Spiritual care concerns: No Anes - Eval Final PreProcedure Day of Procedure 08/27/23 12:18 Patient weight: obese Heart: regular rate and rhythm Lungs: clear to auscultation Airway: Mallampati scale class II Neurological: alert and oriented Last oral intake: >/= 8 hours ASA classification: II Emergent: no Anesthetic plan: proceed Anesthesia type and monitoring: general GIVS and standard monitoring Results Review: All pre-operative results and documents have been reviewed as part of the pre- operative evaluation. Informed Consent: The patient's anesthetic plan and its attendant risks and benefits were discussed with the patient/family/POA. Questions were solicited and answers provided to the satisfaction of the patient/family/POA.
--- NOTE | 2023-08-27 12:21 | PM.IMHP ---
H&P: HPI History of Present Illness Date/Time: 08/27/23 12:21 Chief Complaint: aub Narrative: Patient is a 38 year old female who presents for hysteroscopy D&C. She reports irregular periods every 2-3 weeks over the past 1-2 years. Bleeding is extremely heavy and painful. Patient has a family history of Mcallister syndrome but has not yet been tested herself. Pelvic US demonstrated 14mm lining after frequent bleeding. Discussed recommendation for endometrial sampling. R/b of office EMB vs hysteroscopy and D&C discussed with patient, and patient would like to proceed with hysteroscopy D&C. Denies abdominal pain, nausea, vomiting, dysuria, fevers or chills. Review of Systems Review of Systems: All systems reviewed & are unremarkable except as noted in HPI and below PMFSH Past Medical History Medical History Anemia History of x2 History of ovarian cyst Pneumonia Surgical History Surgical History History of section x 4 History of laparoscopy x 2 History of right oophorectomy Family History Family History Grandparent Breast cancer Other Breast cancer Social History Social History Smoking status: Never smoker Alcohol intake: never Substance use: never Substance use type: does not use Living arrangements: with family Gender identity (if verbalized by the patient): Female Spiritual care concerns: No Meds Home Medications and Allergies Home Medications Medication Instructions Recorded Confirmed Type hydrocodone 5 mg-acetaminophen 325 1 tablet PO BID PRN Pain 08/20/23 08/20/23 History mg tablet Allergies Allergy/AdvReac Type Severity Reaction Status Date / Time No Known Allergies Allergy Verified 08/27/23 11:25 Vital Signs Vital Signs - 24 hr 08/27/23 11:26 Temperature 98.6 F Pulse Rate 65 Respiratory Rate 18 Blood Pressure 110/74 Pulse Oximetry 100 Oxygen Delivery Room Air Exam Const: General: comfortable and no acute distress HENMT: Mouth: Yes moist mucous membranes Eyes: General: appearance normal, both eyes and all related structures Resp: Effort & Inspection: normal respiratory effort Cardio: Rate: regular rate Skin: General skin exam: normal color Extrem: General: normal to inspection Psych: Mental Status: mental status grossly normal Assessment and Plan Assessment and plan (1) Abnormal uterine bleeding (AUB): Code(s): N93.9 - Abnormal uterine and vaginal bleeding, unspecified Status: Acute Assessment and Plan: - Worsening over the past 1-2 years, heavy and painful q2-3 weeks - US demonstrated 14mm lining even after frequent bleeding - recommend endometrial sampling due to family hx and unknown personal status of Mcallister syndrome - r/b of EMB vs hysteroscopy D&C discussed with patient who would like to proceed with hysteroscopy D&C (2) Family history of Mcallister syndrome: Code(s): Z80.0 - Family history of malignant neoplasm of digestive organs Status: Acute
--- NOTE | 2023-08-27 12:26 | WPDHPUPDATE1 ---
History and Physical Update Update Date/Time: 08/27/23 12:26 History and Physical has been reviewed, including an updated exam of the patient. There are NO changes in the patient's condition. Risks, benefits, and alternatives have been discussed and questions answered. Patient agrees to proceed with procedure.
[2023-08-27] MEDS: LIDO 1%/EPINEPHRINE 1:100,000 20 ML VIAL 10 ML INFILTRATE (12:52)
--- NOTE | 2023-08-27 13:08 | W.PM.PROC2 ---
Procedure Note - Detailed Date of Procedure 08/27/23 Pre-op Diagnosis Abnormal Uterine bleeding Post-op Diagnosis Same Procedure Performed hysteroscopy D&C Surgeon Keshawn Mejía MD Anesthesia MAC Findings globally thickened endometrium, both tubal ostia visualized Description of Procedure The patient was then taken to the operating room with IVFs running. She was placed in the dorsal supine position where she received MAC without any difficulty.?? The patient was placed in the dorsal lithotomy position using janay stirrups. EUA revealed the above findings. She was then prepped and draped in a normal sterile fashion. A time-out procedure was performed and all members of the OR team agreed on the patient and plan. A bivalved speculum was then inserted into the patient's vagina.? The anterior lip of the cervix was grasped with a single tooth tenaculum. The cervical os was dilated using cabrera dilators.? The uterus was sounded to 10 cm.? At this point, the hysteroscope was then inserted into the uterine cavity. Saline was used as the distension medium. The above findings were noted. Both tubal ostia were visualized and pictures were taken.? The hysteroscope was then removed. At this point, utilizing a medium sized endometrial curette, a sharp curettage was performed and the specimen sent to pathology.?The hysteroscope was then reinserted. A large ridge of tissue was still visualized, and the resecting blade was inserted. The resection was completed down to the base of tissue. The tissue was then sent to pathology along with the previous specimen. Hemostasis was observed. The hysteroscope was removed. The tenaculum was removed; the anterior lip of the cervix was hemostatic.? The speculum was then removed. The patient tolerated the procedure well.? Sponge, lap, needle, and instrument counts were correct X2.? The patient was taken out of the dorsal lithotomy position and awakened from anesthesia and taken to the recovery room in stable condition. Estimated Blood Loss 10 Pathology Yes (endometrial curettings) Complications No immediate complications Condition Stable Disposition Same day
[2023-08-27 13:10] VITALS: BP 124/65; PULSE 107; RESP 16; O2SAT 100
[2023-08-27] MEDS: fentaNYL CITRATE INJ (*CRX) 100 MCG/2 ML VIAL 25 MCG IV PUSH ×2 (13:21→13:24)
[2023-08-27 13:40] VITALS: BP 115/74; PULSE 94; RESP 16; O2SAT 96
[2023-08-27 14:10] VITALS: BP 101/61; PULSE 51; RESP 16
== END 2023-08-27 14:20 | disposition home or self-care (01) ==
PROVIDERS: PCP Family Medicine; Visit Provider Obstetrics & Gynecology
PROC: 0U5B8ZZ Destruction of Endometrium, Via Natural or Artificial Opening Endoscopic (ICD-10-PCS; CPT 58563; principal; 2023-08-27 13:00)
DX: N93.9 Abnormal uterine and vaginal bleeding, unspecified (principal); Z80.0 Family history of malignant neoplasm of digestive organs
CPT/HCPCS: 58558; 88305; A9270; J1100; J2250; J2405; J2704; J3010; J7120

== ENCOUNTER 2023-12-02 15:02 | Emergency (ER) | payer OTHER, MEDICAID, SELFPAY ==
--- NOTE | 2023-12-02 15:08 | ED.DENTAL ---
HPI - Dental/Oral General Chief complaint: Ear Stated complaint: Earache and Tooth Ache Time Seen by Provider: 12/02/23 15:14 Mode of arrival: ambulatory Limitations: no limitations History of Present Illness HPI Narrative: 38-year-old female presents with concern for right lower dental pain, possibly earache. Reports the symptoms started in the right lower tooth area/jaw and is now radiating into her right ear. She reports she has currently been seeing a dentist for dental work. She denies fever trouble swallowing, headache. MD Complaint: tooth pain Related Data Allergies Allergy/AdvReac Type Severity Reaction Status Date / Time No Known Allergies Allergy Verified 12/02/23 15:04 Review of Systems Review of Systems: CONSTITUTIONAL: Denies malaise, chills, sweats, or fever. EYES: Denies visual changes ENT: Denies rhinorrhea, congestion, sinus pain, or sore throat. Reports right lower dental pain and right ear pain CARDIOVASCULAR: Denies chest pain, palpitations RESPIRATORY: Denies cough or dyspnea. SKIN: Denies rash or itching. MUSCULOSKELETAL: Denies myalgia. NEUROLOGIC: Denies numbness, weakness, or headache. All systems reviewed & are unremarkable except as noted in HPI and below PMFSH Past Medical History Medical History Anemia History of x2 History of ovarian cyst Pneumonia Surgical History Surgical History History of section x 4 History of laparoscopy x 2 History of right oophorectomy Family History Family History Grandparent Breast cancer Other Breast cancer Social History Social History Smoking status: Never smoker Alcohol intake: never Substance use: never Substance use type: does not use Living arrangements: with family Gender identity (if verbalized by the patient): Female Spiritual care concerns: No Comments At time of signature, agree with nursing past medical, surgical, social and family history. There is no relevant family history pertinent to the presenting complaint Exam Narrative: GENERAL: Well-appearing, well-nourished, and in no acute distress. HEAD: Normocephalic, atraumatic. EYES: PERRLA, sclera clear ENT: Nares clear, turbinates pink, no rhinorrhea or epistaxis. Mucous membranes moist. TM pearly pagan with sharp light reflex bilaterally; no tragal tenderness. Oropharynx without erythema or lesions. Tonsils not enlarged and without exudate. Tooth #30 broken with caries, tender at the base of the tooth NECK: Supple. No lymphadenopathy. CHEST: No respiratory distress. Speaks in full sentences. HEART: Regular rate and rhythm. SKIN: Warm, dry, no visible rash. NEURO: Alert and oriented x3. PSYCH: Normal mood and affect Course Course Emergency Course: Patient is aware of diagnosis, understands and agrees to treatment plan. Anticipatory guidance given. Patient agrees to follow-up as directed and is aware of reasons to seek care at the emergency department. Portions of this record may have been created with voice recognition software Level of Care: Express Care Visit Vital Signs Vital signs: Reviewed. MDM - Dental/Oral MDM Narrative Medical decision making narrative: I evaluated this in the [facility] care. History is obtained from patient who is an independent historian and physical exam was performed.? Available medical records were reviewed. ? Exam findings and relevant testing show no acute concerns or changes; patient is non-toxic appearing and is in no distress. Patients pain and complaint coupled with physical findings are consistant with dentalgia. There are no focal signs of space occupying lesions that are compromising to the airway; no dysphagia, odynophagia, dysphonia, or dyspnea. No uvular deviation o
== END 2023-12-02 15:22 | disposition home or self-care (01) ==
PROVIDERS: Emergency Provider Nurse Practitioner; PCP Family Medicine
DX: K08.89 Other specified disorders of teeth and supporting structures (principal)
CPT/HCPCS: 99213; G0463

== ENCOUNTER 2024-05-04 16:25 | Emergency (ER) | payer OTHER, SELFPAY ==
--- NOTE | 2024-05-04 16:29 | ED_ITS ---
HPI - URI/Sore Throat General Chief Complaint: Upper Respiratory Infection Stated Complaint: Sinus Time Seen by Provider: 05/04/24 16:29 Source: patient Mode of arrival: ambulatory Limitations: no limitations History of Present Illness HPI Narrative: Patient is a 38-year-old female who presents with 5 days of sinus pressure, congestion, sore throat and cough. Patient tested herself at home for COVID and was negative. Patient has had coughing fits causing her to vomit. Reports fever of 100-102 at home. Has taken ibuprofen and cough drops. Related Data Home Medications Medication Instructions Recorded Confirmed hydrocodone 5 mg-acetaminophen 325 1 tablet PO TID pain 12/02/23 05/04/24 mg tablet Allergies Allergy/AdvReac Type Severity Reaction Status Date / Time No Known Allergies Allergy Verified 05/04/24 16:44 Review of Systems Review of Systems: All systems reviewed & are unremarkable except as noted in HPI and below Constitutional: Constitutional: Denies body ache(s), Denies chills, Denies fatigue, Reports fever(s), Denies headache(s), Denies malaise and Denies weakness Eyes: Eyes: Denies blurry vision, Denies itchy eyes and Denies loss of vision ENT: Denies otalgia, Denies headache(s), Reports nasal congestion, Denies sinus pain, Reports sinus pressure and Reports sore throat Cardiovascular: Cardiovascular: Denies chest pain, Denies irregular heart rhythm and Denies dyspnea Respiratory: Respiratory: Reports cough and Denies dyspnea Gastrointestinal: Gastrointestinal: Denies abdominal pain, Denies diarrhea, Denies nausea and Reports vomiting Musculoskeletal: Musculoskeletal: Denies back pain, Denies myalgias and Denies arthralgias Integumentary/Breasts: Skin/Breast: Denies pruritus and Denies rash Neurologic: Denies headache(s), Denies loss of vision and Denies weakness Psychiatric: Psychiatric: Reports no additional psychiatric complaints Endocrine: Endocrine: Denies fatigue Allergic/Immunologic: Allergic/Immunologic: Denies itchy eyes PMFSH Past Medical History Medical History Anemia History of x2 History of ovarian cyst Pneumonia Surgical History Surgical History History of section x 4 History of laparoscopy x 2 History of right oophorectomy Family History Family History Grandparent Breast cancer Other Breast cancer Social History Social History Smoking status: Never smoker Alcohol intake: never Substance use: never Substance use type: does not use Living arrangements: with family Gender identity (if verbalized by the patient): Female Spiritual care concerns: No Comments At time of signature, agree with nursing past medical, surgical, social and family history. There is no relevant family history pertinent to the presenting complaint. Exam Const: General: cooperative, healthy appearing, comfortable, no acute distress and well nourished Nutritional Appearance: well nourished Orientation/consciousness: patient oriented x3 Limitations: no limitations HENMT: Head: normal to inspection, normocephalic and atraumatic Ears: hearing grossly normal bilaterally, external ears normal, TM's normal bilaterally, EAC's normal and no periauricular adenopathy Face/Nose/Sinus: Normal external nose present, Abnormal mucous membranes and turbinates present erythematous bilateral and diffuse, normal facial exam, sinuses nontender and face symmetric Face and sinus: normal facial exam, sinuses nontender and face symmetric Mouth: Yes Normal oral and palatal mucosa present, Yes lip normal, Yes tongue normal, Yes Normal salivary glands and ducts present, Yes oropharynx normal and Yes moist mucous membranes Teeth and gingiva: dentition normal Throat: posterior oropharynx normal, tonsils normal and uvula midline Eyes: General: appearance normal, both eyes and all related structures Alignment and Position: alignment normal and position normal Periorbital: periorbital findings normal Eyelids: eyelids normal Pupils: Equal, round and reactive pupils present Neck: Neck: normal visual inspection, full ROM, no lymphadenopathy and supple Chest: Chest palpation & inspection: normal inspection of the chest and normal palpation of entire chest wall Resp: Effort & Inspection: normal respiratory effort and able to speak in complete sentences Auscultation: clear to auscultation bilaterally, no crackles, no rales, no rhonchi and no wheezes Cardio: Rate: regular rate Rhythm: regular rhythm Heart sounds: S1 normal heart sound present and S2 normal heart sound present GI: Inspection: normal to inspection Skin: General skin exam: normal color and no rashes or lesions noted Neuro: General: patient oriented x3 and moves all extremities Cranial nerves: Yes Equal, round and reactive pupils present Speech: normal speech Gait exam (Neuro): Normal gait present Extrem: General: normal to inspection, full ROM and no edema Psych: Appearance: grossly normal and well kempt Mental Status: mental status grossly normal Speech and movement: Normal speech and movement present Affect: normal affect Attitude: cooperative Thought process: Normal thought process present Course Course Emergency Course: Patient is aware of diagnosis, understands and agrees to treatment plan. Anticipatory guidance given. Patient agrees to follow-up as directed and is aware of reasons to seek care at the emergency department. Portions of this record may have been created with voice recognition software Level of Care: Express Care Visit Vital Signs Vital signs: Vital Signs Temperature 36.7 C 05/04/24 16:35 Pulse Rate 90 05/04/24 16:35 Respiratory Rate 16 05/04/24 16:35 Blood Pressure 107/82 05/04/24 16:35 Pulse Oximetry 98 05/04/24 16:35 Oxygen Delivery Room Air 05/04/24 16:35 Temperature 36.7 C 05/04/24 16:35 Pulse Rate 90 05/04/24 16:35 Respiratory Rate 16 05/04/24 16:35 Blood Pressure 107/82 05/04/24 16:35 Pulse Oximetry 98 05/04/24 16:35 Oxygen Delivery Room Air 05/04/24 16:35 Reviewed MDM - URI/Sore Throat MDM Narrative Medical decision making narrative: Discharge instructions reviewed with patient, as well as provided in writing per nursing staff. The instructions also include specific and strict return/GO TO THE ER as well as f/u information. All questions have been answered, and the patient deny any further questions with discharge and discharge plan. Differential diagnosis considered: Barker virus, strep pharyngitis, allergic rhinitis, upper respiratory tract infection, sinusitis, rhinosinusitis, nasopharyngitis. viral pharyngitis, otitis media, otitis externa, otitis effusion, foreign body, cerumen impaction, viral syndrome, and influenza.? Exam findings show no acute concerns or changes; patient is non-toxic appearing and is in no distress.? Patient is appropriate for outpatient treatment and follow- up.? Medical Records Attestation: I reviewed the patient's medical records. Discharge Plan Discharge Clinical Impression: Upper respiratory infection Qualifiers: URI type: unspecified viral URI Qualified Code(s): J06.9 - Acute upper respiratory infection, unspecified Patient Disposition: Home, Self-Care Condition: Stable Instructions: Upper Respiratory Infection (ED) Additional Instructions: Use Tessalon Perles as needed for cough. Use inhaler with spacer as needed. Other symptomatic treatments include: -Alternate Tylenol and Motrin per package directions for fever or pain. -Antihistamine medication such as Benadryl at night and Zyrtec/Claritin/Kezia during the day can help improve symptoms. -Use Flonase twice a day for 5 days then daily to help reduce the inflammation and dry up your sinuses. -You can also use Sudafed or Mucinex. Be sure to drink plenty of water with these medications at least 8 ounces with every dose and it is important to drink 8 to 10 glasses of water per day. Water is a natural decongestant -Eat and drink things that are easy to swallow, like tea or soup, or popsicles. -Oral rinses such as: Salt water gargles and/or may use topical anesthetic (eg. Chloraseptic spray) or lozenges to relieve dryness or throat pain). -Frequent hand washing or hand dietary aide teacher is one of the best ways to prevent spread of infection. -Using a vaporizer or humidifier at night will also help thin secretions and help with coughing up phlegm. -Follow up with primary care provider in 3-5 days if condition is not improving - For new or worsening symptoms go directly to the nearest ER Prescriptions: New fluticasone propionate [Flonase Allergy Relief] 50 mcg/actuation spray,suspension 1 spray intranasal DAILY Qty: 16 0RF Rx Instructions: administer into each nostril loratadine 10 mg tablet 10 mg PO DAILY Qty: 30 0RF No Action hydrocodone-acetaminophen 5-325 mg tablet 1 tablet PO TID Follow-up/Referrals: Gautam Niño MD [Primary Care Provider] - 3 Days Time of Disposition: 17:29
[2024-05-04 16:35] VITALS: BP 107/82; PULSE 90; RESP 16; TEMP 36.7; O2SAT 98
== END 2024-05-04 17:36 | disposition home or self-care (01) ==
PROVIDERS: Emergency Provider Nurse Practitioner Family; PCP Family Medicine
DX: J06.9 Acute upper respiratory infection, unspecified (principal)
CPT/HCPCS: 99213; G0463

== ENCOUNTER 2024-08-23 08:58 | Outpatient (CLI) | payer OTHER, SELFPAY ==
--- NOTE | ~2024-08-23 | XR_ITS ---
XR knee LT min 4V Ordering provider: Yanick Gonzalez, MAINTENANCE SHOP TECHNICIAN History: . Left knee pain . Comparison: None. FINDINGS: BONES: No acute fracture or dislocation. JOINT SPACES: Normal. SOFT TISSUES: Normal. IMPRESSION: No acute osseous abnormality left knee. Reviewed, dictated and finalized at location A.
--- OUTSIDE RECORDS SUMMARY | 2024-08-23 09:44 | XMS_ITS | Clinical Summary ---
Author Organization [facility] Care Team Providers Care Film Developer Name Role Phone Unavailable Primary Care Provider Unavailabl e Social History Tobacco Use Types Packs/Day Years Used Date Smoking Tobacco: Never Assessed Comments Unknown Sex and Gender Information Value Date Recorded Sex Assigned at Not on file Legal Sex Female 1:29 PM [employer] Gender Identity Not on file Sexual Orientation Not on file Plan of Treatment Health Maintenance Due Date Last Done Comments Hepatitis C Virus (HCV) Screening 1987 Pap Smear 2008 Cervical Cancer Screening (CCS) 2017 HPV/Cotest 2017 Influenza Immunization (#1) 2024 03/24/2017 SARS-COV-2 Immunization ( season) 2024 07/20/2020, 06/29/2020 Respiratory Syncytial Virus (RSV) Immunization (Adult) (1 - 1-dose 75+ series) 2062 Hepatitis B Immunization Completed 003, 01/25/1997, 11/09/1996 DTaP/Tdap/Td Immunization Discontinued 2017, 01/08/2007, 11/09/1996, Additional history exists TdaP Immunization Completed 06/17/2017, 01/08/2007 Meningococcal Immunization (ACWY) Aged Out No longer eligible based on patient's age to complete this topic Pneumococcal Immunization Combined Aged Out No longer eligible based on patient's age to complete this topic Rotavirus Immunization Aged Out No lo nger eligible based on patient's age to complete this topic
--- OUTSIDE RECORDS SUMMARY | 2024-08-23 09:44 | XMS_ITS | Clinical Summary ---
Author Organization [employer] [facility] Address [address] [place] [address] Care Team Providers Care Broadcast Operations Manager Name Role Phone Lul Hadley MD Primary Care Provider [phone] Source Comments [facility],non-owned Affiliates and Associated Physician Practices is amultiple site organization consisting of ambulatory clinics and hospital sitesin [place], [place], [place] and [place]. This disclosure is being madepursuant to the Care Everywhere program and may not contain all information available regarding this patient. Last updated 18.[employer] [facility] Allergies No known active allergies Medications * Be aware that medications may not be up to date on this document. Alwaysverify current medications with the patient. Medication Sig Dispensed Refills Start Date End Date Status ondansetron (ZOFRAN) 4 MG tablet Take 1 (one) tablet by mouth every 6 hours as needed Active Vit-Fe Fumarate-FA ( VITAMIN) 28-0.8 MG tablet Take 1 (one) tablet by mouth once daily Active ferrous sulfate 325 (65 FE) MG tablet Take 1 Tab by mouth daily with breakfast. 60 Tab 5 06/23/2010 Active Additional Information Patient not taking.Reported on 11/26/2023 docusate sodium (COLACE) 100 MG capsule Take 1 Cap by mouth 2 times daily as needed for Constipation. 60 Cap 5 06/23/2010 Active Additional Information Patient not taking.Reported on 07/14/2017 albuterol HFA (PROVENTIL;VENTOLIN;P ROAIR) 108 (90 BASE) MCG/ACT inhalerIndications:As thma Inhale 2 (two) puffs by mouth every 6 hours as needed Reasons: Asthma Active calcium carbonate (TUMS) 500 MG chew tablet Take 2 tablets by mouth every 4 hours as needed 30 tablet 07/15/2017 Active Additional Information Patient not taking.Reported on 09/24/2023 diphenhydrAMINE (BENADRYL) 25 MG capsule Take 1 capsule by mouth nightly as needed for Insomnia 30 capsule 07/15/2017 Active Additional Information Patient not taking.Reported on 09/24/2023 metoclopramide (REGLAN) 10 MG tablet Take 1 tablet by mouth 3 times daily before meals 30 tablet 07/15/2017 Active Additional Information Patient not taking.Reported on 11/26/2023 HYDROcodone-acetamino phen (Parks) 5-325 MG tablet Take 1 (one) tablet by mouth 3 times daily as needed For pain. 11/18/2023 Active iron polysaccharides (Niferex 150) 150 MG capsuleIndications:Ir on deficiency anemia, unspecified iron deficiency anemia type Take 1 (one) capsule by mouth once daily 100 capsule 12/01/2023 Active Cholecalciferol (vitamin D3) 1.25 MG (08168 UT) capsule Take 1 (one) capsule by mouth every 7 days Active tranexamic acid (Lysteda) 650 MG tabletIndications:Hea vy Menstrual Bleeding Take 2 (two) tablets by mouth 2 times daily For 1st 3-5 days of menstrual cycle Reasons: Excessive Amount of Menstrual Volume 30 tablet 1 02/26/2024 Active Additional Information Patient not taking.Reported on 06/09/2024 cyanocobalamin (Vitamin B-12) 500 MCG tablet Take 1 (one) tablet by mouth once daily Active Active Problems Problem Noted Date Diagnosed Date Iron deficiency anemia 09/24/2023 Supervision of high-risk , third trimes ter 07/14/2017 Postop check 06/22/2010 H/O: section 05/30/2010 Overview (05/30/2010): x2 Hyperemesis gravidarum 05/30/2010 Corpus luteum cyst 05/30/2010 Overview (05/30/2010): Per u/s report from 04/23/10 from [facility]: Entire right adnexa is replaced by a large corpus luteal cyst measuring 13 x8.7 x16 cm in size. Presence of flow is seen in the right ovary. Left ovary wnl Bilateral ovarian cysts 05/30/2010 Overview (05/30/2010): Op report reviewed: Drained laparoscopically in 08/2009- both ovaries had simple serous follicular cysts, 2150 ml of clear fluid drained from left ovary and 450 ml drained from right ovary. Supervision of other high-risk 010 Overview (04/09/2015): PNL: per ACOG: O-/I/-/- Ab: neg HIV: NR Datinwk u/s H/H/Plt: 13.8/41.8 Hgb Elec: QS: CF: Pap: Gc/Chl: neg/neg UCx: GCT: GBS: Breast/Bottle Family Planning: Asthma Encounters Date Type Department Care Team Description 06/09/2024 11:40 AM [employer] Office Visit [facility] [address] [address] Jennifer Thao MD Iron deficiency anemia, unspecified iron deficiency anemia type (Primary Dx); B12 deficiency 06/09/2024 Travel from Last 3 Months Immunizations Name Administration Dates Next Due Rho D Immune Globulin 07/14/2017 Family History Medical History Relation Name Comments Diabetes Maternal Grandmother Cancer Other lung, brain, br east, liver Diabetes Paternal Grandmother Relation Name Status Comments Maternal Grandmother Other Paternal Grandmother Social History Tobacco Use Types Packs/Day Years Used Date Smoking Tobacco: Never Smokeless Tobacco: Never Tobacco Cessation:Counseling Given: Not Answered Alcohol Use Standard Drinks/Week Comments No 0 (1 standard drink = 0.6 oz pur e alcohol) PHQ-2 Answer Date Recorded Patient Health Questionnaire-2 Score 0 06/09/2024 Sex and Gender Information Value Date Recorded Sex Assigned at Not on file Gender Identity Not on file Sexual Orientation Not on file Last Filed Vital Signs Vital Sign Reading Time Taken Comments Blood Pressure 111/76 06/09/2024 11:50 AM [employer] Pulse 80 06/09/2024 11:50 AM [employer] Temperature 36.8 C (98.2 F) 06/09/2024 11:50 AM [employer] Respiratory Rate 18 03/05/2024 10:44 AM CDT Oxygen Saturation 100% 06/09/2024 11:50 AM [employer] Inhaled Oxygen Concentration - - Weight 89.2 kg (196 lb 9.6 oz) 06/09/2024 11:50 AM [employer] Height 162.6 cm (5' 4 ) 06/09/2024 11:50 AM [employer] Body Mass Index 33.75 06/09/2024 11:50 AM [employer] Plan of Treatment Upcoming Encounters Date Type Department Care Team (Late st Contact Info) Description 10/07/2024 1:00 PM CDT Documentation [facility] [address] [address] 10/07/2024 1:20 PM CDT Office Visit [address] [address] Jennifer Thao MD [address] [place] [id number] Health Maintenance Due Date Last Done Comments DTAP/TDAP/TD VACCINES (1 - Tdap) 2006 HEPATITIS B VACCINE (1 of 3 - 19+ 3-dose series) 2006 PNEUMOCOCCAL VACCINE (1 of 2 - PCV) 2006 COVID-19 VACCINE (3 - 2023- season) 2024 07/20/2020, 06/29/2020 INFLUENZA VACCINE (#1) 2024 , 02/27/2022, 03/02/2020, Additional history exists PAP SMEAR 07/16/2026 07/16/2023 ZOSTER VACCINE (1 of 2) 2037 HEPATITIS C SCREENING Completed 06/17/2018, 019 HIV SCREENING Completed 06/17/2018 DEPRESSION SCREENING Completed 06/09/2024, 09/24/19 24 HIB VACCINE Aged Out No longer eligi ble based on patient's age to complete this topic HPV VACCINE Aged Out No longer eligi ble based on patient's age to complete this topic MENINGOCOCCAL (Group B) VACCINE SHARED DECISION-MAKING Aged Out No longer eligible based on patient's age to complete this topic MENINGOCOCCAL GROUPS A/C/Y/W VACCINE Aged Out No longer eligible based on patient's age to complete this topic Procedures Procedure Name Priority Date/Time Associated Diagnosis Comments IRON + TIBC + FERRITIN Routine 1:23 PM [employer] Iron deficiency anemia, unspecified iron deficiency anemia type B12 deficiency VITAMIN B12 FOLATE PANEL Routine 06/09/2024 1:23 PM [employer] Iron deficiency anemia, unspecified iron deficiency anemia type B12 deficiency COMPREHENSIVE METABOLIC PANEL Routine 06/09/2024 1:23 PM [employer] Iron deficiency anemia, unspecified iron deficiency anemia type B12 deficiency CBC W AUTO DIFFERENTIAL (CANCER CARE) Routine 06/09/2024 11:46 AM [employer] Iron deficiency anemia, unspecified iron deficiency anemia type B12 deficiency from Last 3 Months Results * IRON + TIBC + FERRITIN (06/09/2024 1:23 PM [employer]) TIBC 258 250 - 450 ug/dL [facility] ACCOUNT BILL UIBC 208 131 - 425 ug/dL [facility] ACCOUNT BILL Iron 50 27 - 159 ug/dL [facility] ACCOUNT BILL Iron Saturation 19 15 - 55 % [facility] ACCOUNT BILL Ferritin 127 15 - 150 ng/mL [facility] ACCOUNT BILL Blood BLOOD SPECIMEN / Unknown 06/09/2024 1:23 PM [employer] 06/09/2024 Comment:Blood Release to [facility] i Narrative [facility] ACCOUNT BILL - 06/10/2024 8:36 AM [employer] Performed at: 01 - [facility] [address] [id number] Basket Bottom Machine Operator: Scot Ventura PhD, Phone: [phone] Jennifer Thao MD LAB - CHEMISTRY FORTUNATO GREEN [facility] ACCOUNT BILL [address] [place] [address] * COMPREHENSIVE METABOLIC PANEL (06/09/2024 1:23 PM [employer]) Glucose 89 70 - 99 mg/dL [facility] ACCOUNT BILL BUN 12 6 - 20 mg/dL [facility] ACCOUNT BILL Creatinine 0.78 0.57 - 1.00 mg/dL [facility] ACCOUNT BILL eGFR by CKD-EPI 100 >59 mL/min/1.7 3 [facility] ACCOUNT BILL BUN/Creatinine Ratio 15 9 - 23 [facility] ACCOUNT BILL Sodium 142 134 - 144 mmol/L [facility] ACCOUNT BILL Potassium 4.2 3.5 - 5.2 mmol/L [facility] ACCOUNT BILL Chloride 105 96 - 106 mmol/L [facility] ACCOUNT BILL CO2 25 20 - 29 mmol/L [facility] ACCOUNT BILL Calcium 9.3 8.7 - 10.2 mg/dL [facility] ACCOUNT BILL Protein Total 7.3 6.0 - 8.5 g/dL [facility] ACCOUNT BILL Albumin 4.4 3.9 - 4.9 g/dL [facility] ACCOUNT BILL Globulin Total 2.9 1.5 - 4.5 g/dL [facility] ACCOUNT BILL Bilirubin Total <0.2 0.0 - 1.2 mg/dL [facility] ACCOUNT BILL Alkaline Phosphatase 80 44 - 121 IU/L [facility] ACCOUNT BILL AST 22 0 - 40 IU/L [facility] ACCOUNT BILL ALT 24 0 - 32 IU/L [facility] ACCOUNT BILL Blood BLOOD SPECIMEN / Unknown 06/09/2024 1:23 PM [employer] 06/09/2024 Comment:Blood Release to larry mcgovern Bert [facility] ACCOUNT BILL - 06/10/2024 6:36 AM [employer] Performed at: [address] [id number] Basket Bottom Machine Operator: Scot Ventura PhD, Phone: [phone] Jennifer Thao MD LAB - CHEMISTRY FORTUNATO GREEN [facility] ACCOUNT BILL [address] [place] [address] * VITAMIN B12 FOLATE PANEL (06/09/2024 1:23 PM [employer]) Vitamin B12 509 232 - 1,245 pg/mL [facility] ACCOUNT BILL Folate 10.7 >3.0 ng/mL [facility] ACCOUNT BILL Comment: A serum folate concentration of less than 3.1 ng/mL is considered to represent clinical deficiency. Blood BLOOD SPECIMEN / Unknown 06/09/2024 1:23 PM [employer] 06/09/2024 Comment:Blood Release to larry Noel [facility] ACCOUNT BILL - 06/10/2024 7:36 AM [employer] Performed at: 01 - [facility] [id number] [place], [place] [id number] Basket Bottom Machine Operator: Scot Ventura PhD, Phone: [phone] Jennifer Thao MD LAB - CHEMISTRY FORTUNATO GREEN [facility] ACCOUNT BILL [address] [place] [address] * CBC W AUTO DIFFERENTIAL (CANCER CARE) (06/09/2024 11:46 AM [employer]) WBC 4.6 4.4 - 10.7 x10E9/L 06/09/2024 11:53 AM [employer] [facility] Neutrophils % 55.3 44.0 - 73.0 % 06/09/2024 11:53 AM [employer] [facility] Lymphocytes % 33.9 20.0 - 43.0 % 06/09/2024 11:53 AM [employer] [facility] Monocytes % 8.7 5.0 - 13.0 % 06/09/2024 11:53 AM [employer] [facility] Eosinophils % 1.7 0.0 - 6.0 % 06/09/2024 11:53 AM [employer] [facility] Basophils % 0.4 0.0 - 2.0 % 06/09/2024 11:53 AM [employer] [facility] Neutrophil Absolute 2.54 2.01 - 7.14 x10E9/L 06/09/2024 11:53 AM [employer] [facility] Lymphocytes Absolute 1.56 1.07 - 3.94 x10E9/L 06/09/2024 11:53 AM [employer] [facility] Monocytes Absolute 0.40 0.26 - 1.07 x10E9/L 06/09/2024 11:53 AM [employer] [facility] Eosinophils Absolute 0.08 0 - 0.47 x10E9/L 06/09/2024 11:53 AM [employer] [facility] Basophils Absolute 0.02 0 - 0.08 x10E9/L 06/09/2024 11:53 AM [employer] [facility] RBC 4.41 3.80 - 5.20 x10E12/L 06/09/2024 11:53 AM [employer] [facility] Hemoglobin 13.3 12.0 - 15.6 gm/dL 06/09/2024 11:53 AM [employer] [facility] Hematocrit 40.8 35.9 - 45.5 % 06/09/2024 11:53 AM [employer] [facility] MCV 92.5 80.7 - 98.3 fl 06/09/2024 11:53 AM [employer] [facility] MCH 30.2 26.7 - 34.0 pg 06/09/2024 11:53 AM [employer] [facility] MCHC 32.6 30.8 - 35.9 gm/dL 06/09/2024 11:53 AM [employer] [facility] RDW-CV 12.8 12.1 - 14.9 % 06/09/2024 11:53 AM [employer] [facility] Platelet Count 193 153 - 416 x10E9/L 06/09/2024 11:53 AM [employer] [facility] MPV 10.0 9.4 - 12.9 fl 06/09/2024 11:53 AM [employer] [facility] Blood BLOOD SPECIMEN / Unknown 06/09/2024 11:46 AM [employer] 06/09/2024 11:46 AM [employer] Jennifer Thao MD LAB - HEMATOLOGY ORD ERABLES [facility] [address] [place] [id number] from Last 3 Months Advance Directives * Full Code (Latest Code Status on File) Date Activated Date Inactivated Comments 07/14/2017 8:42 PM 07/15/2017 5:16 PM * Full Code Date Activated Date Inactivated Comments 06/22/2010 8:53 AM 06/24/2010 2:24 AM Care Teams Broadcast Operations Manager Relationship Specialty Start Date End Date Lul Hadley MD [address] [address] PCP - General 07/07/10
--- OUTSIDE RECORDS SUMMARY | 2024-08-23 09:45 | XMS_ITS | Data Portability ---
[facility] Address [address] [place] [address] Assessment No assessment recorded. Plan of Treatment Reminders Order Date Submit Date Provider Last Modified By Organization Details Last Modified Time Details Appointments None recorded. Lab culture, urine 2020 021 [email or web address] [facility], [address] [facility], [address], [place], [address], 17:16:01 culture, urine 2017 018 MARCELLA [facility], [address] [facility], [address], [place], [address], 8 06:06:06 urinalysi s, dipstick 2017 018 azeb In-Office Order, Internal Use Only DO Not Attach Compendium DO Not Attach Compendium, Do Not Delete/merge, [id number] 8 13:38:46 test, urine 2017 018 [email or web address] In-Office Order, Internal Use Only DO Not Attach Compendium DO Not Attach Compendium, Do Not Delete/merge, [id number] 8 13:38:46 Referral urologist referral 2020 021 dipti Torres MD, [address] [facility], [address] , [place], [address], 11:34:21 Procedures None recorded. Surgeries None recorded. Imaging None recorded. Medication Orders Macrobid 100 mg capsule 2020 021 INTERFACE [facility], [address] [place], [address], 1 16:21:13 azithromy lorenzo 250 mg tablet 2017 018 INTERFACE [facility], [address] [place], [address], 8 12:45:04 Patient TargetsNo targets recorded. Patient InstructionsNo instructions recorded. Reason for Referral Urologist Referral for Recur rent urinary tract infection Referring Physician: Nathan Sow, RN PALLIATIVE, Encounter Date: 07/13/2020 Results Created Date Observation Date Name Description Value Unit Range Abnormal Flag Note LastModifiedBy Organization Detail LastModifiedTime 09/23/19 18 09/22/2017 pregn dilshad test, urine HCG negati ve Not Available In-Office Order Internal Use Only DO Not Attach Compendium DO Not Attach Compendium, Do Not Delete/merge, [id number] 09/22/2017 12:24:47 07/01/19 18 07/01/2017 urina lysis , dipst ick Leukocytes Negati ve Not Available In-Office Order Internal Use Only DO Not Attach Compendium DO Not Attach Compendium, Do Not Delete/merge, [id number] 07/01/2017 15:23:05 07/01/19 18 07/01/2017 urina lysis , dipst ick Nitrite negati ve Not Available In-Office Order Internal Use Only DO Not Attach Compendium DO Not Attach Compendium, Do Not Delete/merge, [id number] 07/01/2017 15:23:05 07/01/19 18 07/01/2017 urina lysis , dipst ick Urobilinogen .2 Not Available In-Of fice Order Internal Use Only DO Not Attach Compendium DO Not Attach Compendium, Do Not Delete/merge, [id number] 07/01/2017 15:23:05 07/01/19 18 07/01/2017 urina lysis , dipst ick Protein Trace Not Available In-Office Order Internal Use Only DO Not Attach Compendium DO Not Attach Compendium, Do Not Delete/merge, [id number] 07/01/2017 15:23:05 07/01/19 18 07/01/2017 urina lysis , dipst ick pH 5.5 Not Available In-Office Order Internal Use Only DO Not Attach Compendium DO Not Attach Compendium, Do Not Delete/merge, [id number] 07/01/2017 15:23:05 07/01/19 18 07/01/2017 urina lysis , dipst ick Blood Negati ve Not Available In-Office Order Internal Use Only DO Not Attach Compendium DO Not Attach Compendium, Do Not Delete/merge, 07/01/2017 15:23:05 07/01/19 18 07/01/2017 urina lysis , dipst ick Specific Celina 1.030 Not Available In-Off ice Order Internal Use Only DO Not Attach Compendium DO Not Attach Compendium, Do Not Delete/merge, 07/01/2017 15:23:05 07/01/19 18 07/01/2017 urina lysis , dipst ick Ketone Trace Not Available In-Office Order Internal Use Only DO Not Attach Compendium DO Not Attach Compendium, Do Not Delete/merge, 07/01/2017 15:23:05 07/01/19 18 07/01/2017 urina lysis , dipst ick Bilirubin Negati ve Not Available In-Office Order Internal Use Only DO Not Attach Compendium DO Not Attach Compendium, Do Not Delete/merge, 07/01/2017 15:23:05 07/01/19 18 07/01/2017 urina lysis , dipst ick Glucose 250 Not Available In-Office Order Internal Use Only DO Not Attach Compendium DO Not Attach Compendium, Do Not Delete/merge, 07/01/2017 15:23:05 07/01/19 18 07/02/2017 CMP, serum or plasm a glucose, serum 110 mg/dL 65-99 above high normal Not Available [facility] ([facility]) [address] [facility], [place], [address], 07/02/2017 09:19:30 07/01/19 18 07/02/2017 CMP, serum or plasm a BUN 6 mg/dL 6-20 Not Available [facility] ([facility]) [address] [facility] [place], [address], 07/02/2017 09:19:30 07/01/19 18 07/02/2017 CMP, serum or plasm a creatinine, serum 0.60 mg/dL 0.57-1 .00 Not Available [facility] ([facility]) [address] [facility] [place], [address], 07/02/2017 09:19:30 07/01/19 18 07/02/2017 CMP, serum or plasm a eGFR if nonafricn AM 123 mL/mi n/1.7 3 >59 Not Available [facility] ([facility]) [address] [facility] [place], [address], 07/02/2017 09:19:30 07/01/19 18 07/02/2017 CMP, serum or plasm a eGFR if africn AM 141 mL/mi n/1.7 3 >59 Not Available [facility] ([facility]) [address] [facility] [place], [address], 07/02/2017 09:19:30 07/01/19 18 07/02/2017 CMP, serum or plasm a BUN/creatini ne ratio 10 9-23 Not Available [facility] ([facility]) [address] [facility] [place], [address], 07/02/2017 09:19:30 07/01/19 18 07/02/2017 CMP, serum or plasm a sodium, serum 140 mmol/ L 134-14 4 Not Available [facility] ([facility]) [address] [facility] [place], [address], 07/02/2017 09:19:30 07/01/1907/02/2017 CMP, serum or plasm a potassium, serum 3.8 mmol/ L 3.5-5. 2 Not Available [facility] ([facility]) [address] [facility] [place], [address], 07/02/2017 09:19:30 07/01/19 18 07/02/2017 CMP, serum or plasm a chloride, serum 104 mmol/ L 96-106 Not Available [facility] ([facility]) [address] [place], [address], 07/02/2017 09:19:30 07/01/19 18 07/02/2017 CMP, serum or plasm a carbon dioxide, total 24 mmol/ L 18-29 Not Available [facility] ([facility]) [address] [place], [address], 07/02/2017 09:19:30 07/01/1907/02/2017 CMP, serum or plasm a calcium, serum 9.2 mg/dL 8.7-10 .2 Not Available [facility] ([facility]) [address] [place], [address], 07/02/2017 09:19:30 07/01/1907/02/2017 CMP, serum or plasm a protein, total, serum 6.5 g/dL 6.0-8. 5 Not Available [facility] ([facility]) [address] [place], [address], 07/02/2017 09:19:30 07/01/19 18 07/02/2017 CMP, serum or plasm a albumin, serum 3.6 g/dL 3.5-5. 5 Not Available [facility] ([facility]) [address] [place], [address], 07/02/2017 09:19:30 07/01/1907/02/2017 CMP, serum or plasm a globulin, total 2.9 g/dL 1.5-4. 5 Not Available [facility] ([facility]) [address] [place] [address], [address], 07/02/2017 09:19:30 07/01/19 18 07/02/2017 CMP, serum or plasm a A/G ratio 1.2 1.2-2. 2 Not Available [facility] ([facility]) [address] [place], [address], 07/02/2017 09:19:30 07/01/19 18 07/02/2017 CMP, serum or plasm a bilirubin, total 0.4 mg/dL 0.0-1. 2 Not Available [facility] ([facility]) [address] [place], [address], 07/02/2017 09:19:30 07/01/19 18 07/02/2017 CMP, serum or plasm a alkaline phosphatase, S 91 IU/L 39-117 Not Available [facility] ([facility]) [address] [place], [address], 07/02/2017 09:19:30 07/01/19 18 07/02/2017 CMP, serum or plasm a AST (SGOT) 19 IU/L 0-40 Not Available [facility] ([facility]) [address] [place], [address], 07/02/2017 09:19:30 07/01/19 18 07/02/2017 CMP, serum or plasm a ALT (SGPT) 23 IU/L 0-32 Not Available [facility] ([facility]) [address] [place] [address], [address], 07/02/2017 09:19:30 07/01/1907/02/2017 RPR (rapi d plasm a reagi n), serum RPR NON REACTI VE non reacti ve Not Available [facility] ([facility]) [address] [place], [address], 07/02/2017 09:19:30 07/01/1907/02/2017 HIV 1+2 AB + HIV 1 p24 Ag, quali tativ e immun oassa y, serum HIV screen 4TH generation wrfx NON REACTI VE non reacti ve Not Available [facility] ([facility]) [address] [place], [address], 07/02/2017 09:19:31 07/01/19 18 07/02/2017 HBsAg (hepa titis B surfa ce Ag), EIA, serum HBsAg screen NEGATI VE negati ve Not Available [facility] ([facility]) [address] [facility], [place], [address], 07/02/2017 09:19:32 07/01/19 18 07/03/2017 bacte rial vagin osis + vagin itis panel , vagin al atopobium vaginae LOW - 0 score Not Available [facility] ([facility]) [address] [place], [address], 07/07/2017 14:10:19 07/01/19 18 07/03/2017 bacte rial vagin osis + vagin itis panel , vagin al bvab 2 LOW - 0 score Not Available [facility] ([facility]) [address] [facility], [place], [address], 07/07/2017 14:10:19 07/01/19 18 07/03/2017 bacte rial vagin osis + vagin itis panel , vagin al megasphaera 1 LOW - 0 score Calcu late total score by ney valdez the 3 indiv idual bacte rial vagin osis (BV) marke r score s toget her. Total score is inter prete d as follo ws: Total score 0-1: Indic ates the absen ce of BV. Total score 2: Indet ermin ate for BV. Addit ional clini quinton data shoul d be evalu ated to estab evin a diagn osis. Total score 3-6: Indic ates the prese nce of BV. This test was devel oped and its perfo rmanc e madelaine cteri stics deter mined by [facility]. It has not been clear ed or appro gay by the Food and Drug Admin istra tion. The FDA has deter mined that such clear ance or appro lazaro is not neces timoteo. Not Available [facility] ([facility]) [address] [place], [address], 07/07/2017 14:10:19 07/01/19 18 07/03/2017 bacte rial vagin osis + vagin itis panel , vagin al tonya albicans, MARCOS POSITI VE negati ve abnormal Not Available [facility] ([facility]) [address] [facility], [place], [address], 07/07/2017 14:10:19 07/01/19 18 07/03/2017 bacte rial vagin osis + vagin itis panel , vagin al tonya glabrata, MARCOS NEGATI VE negati ve This test was devel marised and its perfo rmanc e madelaine cteri stics deter mined by [facility]. It has not been clear ed or appro gay by the Food and Drug Admin istra tion. The FDA has deter mined that such clear ance or appro lazaro is not neces timoteo. Not Available [facility] ([facility]) [address] [facility], [place], [address], 07/07/2017 14:10:19 07/01/19 18 07/03/2017 bacte rial vagin osis + vagin itis panel , vagin al trich vag by MARCOS NEGATI VE negati ve Not Available [facility] ([facility]) [address] [place], [address], 07/07/2017 14:10:19 07/01/19 18 07/03/2017 bacte rial vagin osis + vagin itis panel , vagin al chlamydia trachomatis, MARCOS NEGATI VE negati ve Not Available [facility] ([facility]) [address] [place], [address], 07/07/2017 14:10:19 07/01/19 18 07/03/2017 bacte rial vagin osis + vagin itis panel , vagin al neisseria gonorrhoeae, MARCOS NEGATI VE negati ve Not Available [facility] ([facility]) [address], [place], [address], 07/07/2017 14:10:19 07/01/19 18 07/03/2017 HSV (1+2) DNA, qual, PCR, unspe cifie d speci men hsv 1 MARCOS NEGATI VE negati ve Not Available [facility] ([facility]) [address], [place], [address], 07/07/2017 14:10:20 07/01/19 18 07/03/2017 HSV (1+2) DNA, qual, PCR, unspe cifie d speci men hsv 2 MARCOS NEGATI VE negati ve Not Available [facility] ([facility]) [address] [facility], [place], [address], 07/07/2017 14:10:20 07/01/19 18 07/03/2017 cultu re, vagin al/re ctal, strep tococ cus group B strep gp B MARCOS NEGATI VE negati ve Cente rs for Disea se Contr ol and Preve ntion (CDC) and Ameri can Congr ess of Obste trici ans and Gynec ologi sts (ACOG ) guide lines for preve ntion of perin atal group B strep tococ quinton (GBS) disea se speci fy co-co llect ion of a vagin al and recta l swab speci men to maxim ize sensi tivit y of GBS detec tion. Per the CDC and ACOG, swabb ing both the lower vagin a and rectu m subst antia lly incre ases the yield of detec tion eloisa red with sampl ing the vagin a alone . Penic illin G, ampic illin , or cefaz kenisha are indic ated for intra partu m proph ylaxi s of perin atal GBS colon izati on. Refle x susce ptibi lity testi ng shoul d be perfo rmed prior to use of clind amyci n only on GBS isola edilberto from penic illin -sravan rgic women who are consi dered a high risk for anaph ylaxi s. Treat ment with vanco mycin witho ut addit ional testi ng is bhupendra mathews if resis tance to clind adrian n is noted . Not Available [facility] ([facility]) [address], [place], [address], 07/07/2017 14:10:22 07/08/19 18 07/08/2017 urina lysis , dipst ick Leukocytes Small Not Available In-Offi ce Order Internal Use Only DO Not Attach Compendium DO Not Attach Compendium, Do Not Delete/merge, [id number] 07/08/2017 13:06:05 07/08/19 18 07/08/2017 urina lysis , dipst ick Nitrite negati ve Not Available In-Office Order Internal Use Only DO Not Attach Compendium DO Not Attach Compendium, Do Not Delete/merge, [id number] 07/08/2017 13:06:05 07/08/19 18 07/08/2017 urina lysis , dipst ick Urobilinogen .2 Not Available In-Of fice Order Internal Use Only DO Not Attach Compendium DO Not Attach Compendium, Do Not Delete/merge, [id number] 07/08/2017 13:06:05 07/08/19 18 07/08/2017 urina lysis , dipst ick Protein 30 Not Available In-Office Order Internal Use Only DO Not Attach Compendium DO Not Attach Compendium, Do Not Delete/merge, [id number] 07/08/2017 13:06:05 07/08/19 18 07/08/2017 urina lysis , dipst ick pH 5.5 Not Available In-Office Order Internal Use Only DO Not Attach Compendium DO Not Attach Compendium, Do Not Delete/merge, [id number] 07/08/2017 13:06:05 07/08/19 18 07/08/2017 urina lysis , dipst ick Blood Negati ve Not Available In-Office Order Internal Use Only DO Not Attach Compendium DO Not Attach Compendium, Do Not Delete/merge, [id number] 07/08/2017 13:06:05 07/08/19 18 07/08/2017 urina lysis , dipst ick Specific Celina 1.025 Not Available In-Off ice Order Internal Use Only DO Not Attach Compendium DO Not Attach Compendium, Do Not Delete/merge, [id number] 07/08/2017 13:06:05 07/08/19 18 07/08/2017 urina lysis , dipst ick Ketone Large Not Available In-Office Order Internal Use Only DO Not Attach Compendium DO Not Attach Compendium, Do Not Delete/merge, [id number] 07/08/2017 13:06:05 07/08/19 18 07/08/2017 urina lysis , dipst ick Bilirubin Negati ve Not Available In-Office Order Internal Use Only DO Not Attach Compendium DO Not Attach Compendium, Do Not Delete/merge, [id number] 07/08/2017 13:06:05 07/08/19 18 07/08/2017 urina lysis , dipst ick Glucose Negati ve Not Available In-Office Order Internal Use Only DO Not Attach Compendium DO Not Attach Compendium, Do Not Delete/merge, [id number] 07/08/2017 13:06:05 07/16/19 18 07/17/2017 CBC w/ auto diff WBC 9.9 x10e3 /uL 3.4-10 .8 Not Available [facility] ([facility]) [address] [place], [address], 07/17/2017 06:07:32 07/16/19 18 07/17/2017 CBC w/ auto diff RBC 4.10 x10e6 /uL 3.77-5 .28 Not Available [facility] ([facility]) [address] [place], [address], 07/17/2017 06:07:32 07/16/19 18 07/17/2017 CBC w/ auto diff hemoglobin 10.7 g/dL 11.1-1 5.9 below low normal Not Available [facility] ([facility]) [address] [place], [address], 07/17/2017 06:07:32 07/16/19 18 07/17/2017 CBC w/ auto diff hematocrit 34.0 % 34.0-4 6.6 Not Available [facility] ([facility]) [address] [place], [address], 07/17/2017 06:07:32 07/16/19 18 07/17/2017 CBC w/ auto diff MCV 83 fL 79-97 Not Available [facility] ([facility]) [address] [facility] [place], [address], 07/17/2017 06:07:32 07/16/19 18 07/17/2017 CBC w/ auto diff MCH 26.1 pg 26.6-3 3.0 below low normal Not Available [facility] ([facility]) [address] [facility] [place], [address], 07/17/2017 06:07:32 07/16/19 18 07/17/2017 CBC w/ auto diff MCHC 31.5 g/dL 31.5-3 5.7 Not Available [facility] ([facility]) [address] [place], [address], 07/17/2017 06:07:32 07/16/19 18 07/17/2017 CBC w/ auto diff RDW 15.0 % 12.3-1 5.4 Not Available [facility] ([facility]) [address] [place], [address], 07/17/2017 06:07:32 07/16/19 18 07/17/2017 CBC w/ auto diff platelets 130 x10e3 /uL 150-37 9 below low normal Not Available [facility] ([facility]) [address] [place], [address], 07/17/2017 06:07:32 07/16/19 18 07/17/2017 CBC w/ auto diff neutrophils 72 % not estab. Not Available [facility] ([facility]) [address] [place], [address], 07/17/2017 06:07:32 07/16/19 18 07/17/2017 CBC w/ auto diff lymphs 16 % not estab. Not Available [facility] ([facility]) [address] [place], [address], 07/17/2017 06:07:32 07/16/19 18 07/17/2017 CBC w/ auto diff monocytes 11 % not estab. Not Available [facility] ([facility]) [address] [place], [address], 07/17/2017 06:07:32 07/16/19 18 07/17/2017 CBC w/ auto diff eos 1 % not estab. Not Available [facility] ([facility]) [address] [facility], [place], [address], 07/17/2017 06:07:32 07/16/19 18 07/17/2017 CBC w/ auto diff basos 0 % not estab. Not Available [facility] ([facility]) [address], [place], [address], 07/17/2017 06:07:32 07/16/19 18 07/17/2017 CBC w/ auto diff immature cells EDGE RUNNER Not Available [facility] ([facility]) [address], [place], [address], 07/17/2017 06:07:32 07/16/19 18 07/17/2017 CBC w/ auto diff neutrophils (absolute) 7.1 x10e3 /uL 1.4-7. 0 above high normal Not Available [facility] ([facility]) [address] [place], [address], 07/17/2017 06:07:32 07/16/19 18 07/17/2017 CBC w/ auto diff lymphs (absolute) 1.6 x10e3 /uL 0.7-3. 1 Not Available [facility] ([facility]) [address] [place], [address], 07/17/2017 06:07:32 07/16/19 18 07/17/2017 CBC w/ auto diff monocytes(ab solute) 1.1 x10e3 /uL 0.1-0. 9 above high normal Not Available [facility] ([facility]) [address] [facility], [place], [address], 07/17/2017 06:07:32 07/16/19 18 07/17/2017 CBC w/ auto diff eos (absolute) 0.1 x10e3 /uL 0.0-0. 4 Not Available [facility] ([facility]) [address] [facility], [place], [address], 07/17/2017 06:07:32 07/16/19 18 07/17/2017 CBC w/ auto diff baso (absolute) 0.0 x10e3 /uL 0.0-0. 2 Not Available [facility] ([facility]) [address] [facility], [place], [address], 07/17/2017 06:07:32 07/16/19 18 07/17/2017 CBC w/ auto diff immature granulocytes 0 % not estab. Not Available [facility] ([facility]) [address] [facility], [place], [address], 07/17/2017 06:07:32 07/16/19 18 07/17/2017 CBC w/ auto diff immature grans (abs) 0.0 x10e3 /uL 0.0-0. 1 Not Available [facility] ([facility]) [address], [place], [address], 07/17/2017 06:07:32 07/16/19 18 07/17/2017 CBC w/ auto diff NRBC EDGE RUNNER Not Available [facility] ([facility]) [address], [place], [address], 07/17/2017 06:07:32 07/16/19 18 07/17/2017 CBC w/ auto diff hematology comments: EDGE RUNNER Not Available [facility] ([facility]) [address], [place], [address], 07/17/2017 06:07:32 07/16/19 18 07/17/2017 CMP, serum or plasm a glucose, serum 74 mg/dL 65-99 Not Available [facility] ([facility]) [address] [place], [address], 07/17/2017 06:07:33 07/16/19 18 07/17/2017 CMP, serum or plasm a BUN 9 mg/dL 6-20 Not Available [facility] ([facility]) [address] [place], [address], 07/17/2017 06:07:33 07/16/19 18 07/17/2017 CMP, serum or plasm a creatinine, serum 0.66 mg/dL 0.57-1 .00 Not Available [facility] ([facility]) [address] [place], [address], 07/17/2017 06:07:33 07/16/19 18 07/17/2017 CMP, serum or plasm a eGFR if nonafricn AM 119 mL/mi n/1.7 3 >59 Not Available [facility] ([facility]) [address] [place], [address], 07/17/2017 06:07:33 07/16/19 18 07/17/2017 CMP, serum or plasm a eGFR if africn AM 137 mL/mi n/1.7 3 >59 Not Available [facility] ([facility]) [address] [place], [address], 07/17/2017 06:07:33 07/16/19 18 07/17/2017 CMP, serum or plasm a BUN/creatini ne ratio 14 9-23 Not Available [facility] ([facility]) [address] [place], [address], 07/17/2017 06:07:33 07/16/19 18 07/17/2017 CMP, serum or plasm a sodium, serum 137 mmol/ L 134-14 4 Not Available [facility] ([facility]) [address] [place], [address], 07/17/2017 06:07:33 07/16/19 18 07/17/2017 CMP, serum or plasm a potassium, serum 4.1 mmol/ L 3.5-5. 2 Not Available [facility] ([facility]) [address] [place], [address], 07/17/2017 06:07:33 07/16/19 18 07/17/2017 CMP, serum or plasm a chloride, serum 100 mmol/ L 96-106 Not Available [facility] ([facility]) [address] [place], [address], 07/17/2017 06:07:33 07/16/19 18 07/17/2017 CMP, serum or plasm a carbon dioxide, total 21 mmol/ L 18-29 Not Available [facility] ([facility]) [address] [place], [address], 07/17/2017 06:07:33 07/16/19 18 07/17/2017 CMP, serum or plasm a calcium, serum 8.8 mg/dL 8.7-10 .2 Not Available [facility] ([facility]) [address] [place], [address], 07/17/2017 06:07:33 07/16/19 18 07/17/2017 CMP, serum or plasm a protein, total, serum 6.4 g/dL 6.0-8. 5 Not Available [facility] ([facility]) [address] [place], [address], 07/17/2017 06:07:33 07/16/19 18 07/17/2017 CMP, serum or plasm a albumin, serum 3.4 g/dL 3.5-5. 5 below low normal Not Available [facility] ([facility]) [address] [place], [address], 07/17/2017 06:07:33 07/16/19 18 07/17/2017 CMP, serum or plasm a globulin, total 3.0 g/dL 1.5-4. 5 Not Available [facility] ([facility]) [address] [facility] [place], [address], 07/17/2017 06:07:33 07/16/19 18 07/17/2017 CMP, serum or plasm a A/G ratio 1.1 1.2-2. 2 below low normal Not Available [facility] ([facility]) [address] [facility] [place], [address], 07/17/2017 06:07:33 07/16/19 18 07/17/2017 CMP, serum or plasm a bilirubin, total 0.3 mg/dL 0.0-1. 2 Not Available [facility] ([facility]) [address] [facility] [place], [address], 07/17/2017 06:07:33 07/16/1907/17/2017 CMP, serum or plasm a alkaline phosphatase, S 100 IU/L 39-117 Not Available [facility] ([facility]) [address] [facility] [place], [address], 07/17/2017 06:07:33 07/16/1907/17/2017 CMP, serum or plasm a AST (SGOT) 21 IU/L 0-40 Not Available [facility] ([facility]) [address] [place], [address], 07/17/2017 06:07:33 07/16/1907/17/2017 CMP, serum or plasm a ALT (SGPT) 35 IU/L 0-32 above high normal Not Available [facility] ([facility]) [address] [facility] [place], [address], 07/17/2017 06:07:33 07/16/1907/17/2017 uric acid, serum or plasm a uric acid, serum 3.1 mg/dL 2.5-7. 1 Thera peuti c targe t for gout patie nts: <6.0 Not Available [facility] ([facility]) [address], [place], [address], 07/17/2017 06:07:33 09/23/19 18 09/23/2017 cultu re, urine urine culture, routine Final report Not Available [facility] ([facility]) [address], [place], [address], 09/24/2017 06:06:05 09/23/19 18 09/23/2017 cultu re, urine result 1 Commen t Mixed uroge nital loni Less than 10,00 0 colon ies/m L Not Available [facility] ([facility]) [address], [place], [address], 09/24/2017 06:06:05 09/23/19 18 09/22/2017 urina lysis , dipst ick Leukocytes Negati ve Not Available In-Office Order Internal Use Only DO Not Attach Compendium DO Not Attach Compendium, Do Not Delete/merge, [id number] 09/22/2017 12:24:07 09/23/19 18 09/22/2017 urina lysis , dipst ick Nitrite negati ve Not Available In-Office Order Internal Use Only DO Not Attach Compendium DO Not Attach Compendium, Do Not Delete/merge, [id number] 09/22/2017 12:24:07 09/23/19 18 09/22/2017 urina lysis , dipst ick Urobilinogen .2 Not Available In-Of fice Order Internal Use Only DO Not Attach Compendium DO Not Attach Compendium, Do Not Delete/merge, [id number] 09/22/2017 12:24:07 09/23/19 18 09/22/2017 urina lysis , dipst ick Protein Negati ve Not Available In-Office Order Internal Use Only DO Not Attach Compendium DO Not Attach Compendium, Do Not Delete/merge, [id number] 09/22/2017 12:24:07 09/23/19 18 09/22/2017 urina lysis , dipst ick pH 6.0 Not Available In-Office Order Internal Use Only DO Not Attach Compendium DO Not Attach Compendium, Do Not Delete/merge, [id number] 09/22/2017 12:24:07 09/23/19 18 09/22/2017 urina lysis , dipst ick Blood Non-He molyze d: Trace Not Available In-Office Order Internal Use Only DO Not Attach Compendium DO Not Attach Compendium, Do Not Delete/merge, [id number] 09/22/2017 12:24:07 09/23/19 18 09/22/2017 urina lysis , dipst ick Specific Celina 1.025 Not Available In-Off ice Order Internal Use Only DO Not Attach Compendium DO Not Attach Compendium, Do Not Delete/merge, [id number] 09/22/2017 12:24:07 09/23/19 18 09/22/2017 urina lysis , dipst ick Ketone Negati ve Not Available In-Office Order Internal Use Only DO Not Attach Compendium DO Not Attach Compendium, Do Not Delete/merge, [id number] 09/22/2017 12:24:07 09/23/19 18 09/22/2017 urina lysis , dipst ick Bilirubin Negati ve Not Available In-Office Order Internal Use Only DO Not Attach Compendium DO Not Attach Compendium, Do Not Delete/merge, 09/22/2017 12:24:07 09/23/19 18 09/22/2017 urina lysis , dipst ick Glucose Negati ve Not Available In-Office Order Internal Use Only DO Not Attach Compendium DO Not Attach Compendium, Do Not Delete/merge, 09/22/2017 12:24:07 07/18/19 18 07/15/2017 US, obste tric, 3rd trime ster No observ ation record ed. [email or web address] Not Available 08/06 17:38:56 Result Notes None recorded. Problems Name Problem SNOMED Code Status Onset Date Resolution Date Notes Provider Name and Address Organization Details Recorded Time Female sterilizati on Completed 2016 MARY [place]ANE [place] - [facility] 8 14:46:27 Deliveries by [id number] Completed 2016 M[place] - [facility] 8 14:46:27 Nonalcoholi c steatohepat itis 261422972 Completed 2016 M[place]ANE [place] - [facility] 8 14:46:27 Polycystic ovaries Completed 2016 Gloria Mccallum [place] null, [place] - [facility] 8 14:46:27 Acute lower urinary tract infection 691720945 Completed Gloria Mccallum [place] [facility] 8 14:46:27 Pneumonia 633100280 Completed 2016 Gloria Mccall[place] [facility] 8 14:46:27 Pneumonia 883103555 Active 2016 Gloria Mccallum [place] [facility] 8 14:46:27 Pneumonia and influenza 644109276 Completed 2017 Gloria Mccallum [place] [facility] 8 14:46:27 Pneumonia and influenza 631284207 Active 2017 Gloria Mccallum [place] [facility] 8 14:46:27 Candidiasis of vagina 90450273 Completed 2017 Gloria Mccall[place] [facility] 8 14:46:27 Candidiasis of vagina 68267860 Active 2017 Gloria Mccall[place] [facility] 8 14:46:27 Acute lower urinary tract infection 404643583 Active Gloria Mccall[place] [facility] 8 14:46:27 Polycystic ovaries Active 2016 Gloria Mcc[place] [facility] 8 14:46:27 Hirsutism 420170179 Active 2016 Gloria Mccall[place] [facility] 8 10:58:00 Hyperlipide nicki 05547653 Active 2016 Gloria Mccallum [place] [facility] 8 10:58:00 Nonalcoholi c steatohepat itis 368538716 Active 2016 MARY [place]ANE [place] - [facility] 8 14:46:27 68251172 Completed 201604/23/2017 [place]ran[place] - [facility] 7 17:14:48 Chronic idiopathic constipatio n 18964871 Active 2016 Gloria Mccallum [place] [facility] 8 14:46:27 Chronic idiopathic constipatio n 90450410 Completed 2016 Gloria Mccallum MA bina, [facility] 8 14:46:27 Deliveries by 248419225 Active 2016 Gloria Mccallum [place] [facility] 8 14:46:27 Female sterilizati on Active 2016 Gloria Mccallum [place] - [facility] 8 14:46:27 Problem Notes None recorded. Procedures Surgical History Date Name Laterality Status Provider Name and Address Organization Details Recorded Time 07/18/19 18 SECTION (SURG) completed Nathan Garnerman [facility] 08/06/2017 17:38:56 12/19/19 17 Date of Last Pap Smear completed Gloria Mccallum MA [facility] 09/22/2017 12:18:11 11/02/19 11 Caesarean Section completed Gloria Mccallum MA [facility] 12/18/2016 15:00:06 07/03/19 11 Laparoscopy completed Gloria Mccallum MA [facility] 12/18/2016 15:00:51 12/25/19 07 Caesarean Section completed Gloria Mccallum MA [facility] 12/18/2016 14:59:59 01/18/20 05 Caesarean Section completed Gregg Rocha RN [facility] 01/02/2017 15:32:01 Imaging Results Imaging Date Name Status LastModified by Organiz ation Details LastModified Time 07/15/2017 US, obstetric, 3rd trimester completed [email or web address] Information not available 08/06/2017 17:38:56 Procedure Notes None recorded. Medical Equipment None Reported. Allergies No known drug allergies Medications Name Sig Start Date Stop Date Status Note LastModified by Organization Details LastModified Time Prometrium 200 mg capsule Take 1 capsule twice a day by oral route. 04/23 completed Not Available Not Available Not Available metformin 500 mg tablet Take 1 tablet twice a day by oral route. 01/02 completed Not Available Not Available Not Available Qvar 80 mcg/actuati on Metered Aerosol oral inhaler Inhale 2 puffs twice a day by inhalatio n route. active Not Available Not Available No t Available prednisone 10 mg tablet 06/03 completed Not Available Not Available Not Available venlafaxine ER 75 mg capsule,ext ended release 24 hr 04/23 completed Not Available Not Available Not Available citalopram 40 mg tablet Take 1 tablet every day by oral route. 01/02 completed Not Available Not Available Not Available trazodone 50 mg tablet TAKE 1 TABLET BY MOUTH ONCE DAILY AT BEDTIME active Not Available Not Available No t Available azithromyci n 250 mg tablet TAKE 2 TABLETS (500 MG) BY ORAL ROUTE ONCE DAILY FOR 1 DAY THEN 1 TABLET (250 MG) BY ORAL ROUTE ONCE DAILY FOR 4 DAYS active Not Available Not Available No t Available ibuprofen 800 mg tablet Take 1 tablet 3 times a day by oral route as needed. 09/22 completed Not Available Not Available Not Available fluconazole 150 mg tablet Take 1 tablet by oral route. 07/16 completed Not Available Not Available Not Available hydrocodone 5 mg-acetamin ophen 325 mg tablet TAKE 1 TABLET BY MOUTH EVERY 6 TO 8 HOURS NEEDED FOR PAIN active Not Available Not Available No t Available sumatriptan 25 mg tablet 04/23 completed Not Available Not Available Not Available prednisone 20 mg tablet TAKE 2 TABLETS BY MOUTH TWICE DAILY FOR 5 DAYS active Not Available Not Available No t Available spironolact one 100 mg tablet Take 1 tablet twice a day by oral route. 04/23 completed Not Available Not Available Not Available acetaminoph en 300 mg-codeine 30 mg tablet 06/03 completed Not Available Not Available Not Available cimetidine 800 mg tablet Take 1 tablet every day by oral route. 01/02 completed Not Available Not Available Not Available sulfamethox azole 800 mg-trimetho prim 160 mg tablet 01/02 completed Not Available Not Available Not Available tramadol 50 mg tablet TAKE 1 TABLET BY MOUTH EVERY 8 HOURS NEEDED FOR BREATHROU GH PAIN active Not Available Not Available No t Available Vitamin tablet Take 1 tablet every day by oral route as directed for 90 days. 06/03 completed Not Available Not Available Not Available Zofran 4 mg tablet Take 1 tablet every 8 hours by oral route as needed for 2 days. 04/23 completed Not Available Not Available Not Available terbinafine HCl 250 mg tablet TAKE 1 TABLET BY MOUTH ONCE DAILY FOR 14 DAYS active Not Available Not Available No t Available amoxicillin 875 mg tablet TAKE 1 TABLET BY MOUTH TWICE DAILY UNTIL GONE active Not Available Not Available No t Available alprazolam 0.25 mg tablet TAKE 1 TABLET BY MOUTH TWICE DAILY NEEDED FOR ANXIETY active Not Available Not Available No t Available simvastatin 20 mg tablet Take 1 tablet every day by oral route. 01/02 completed Not Available Not Available Not Available oseltamivir 75 mg capsule 06/03 completed Not Available Not Available Not Available Cipro 500 mg tablet Take 1 tablet every 12 hours by oral route. 09/25 completed Not Available Not Available Not Available prednisone 50 mg tablet TAKE 1 TABLET BY MOUTH ONCE DAILY FOR 5 DAYS active Not Available Not Available No t Available montelukast 10 mg tablet Take 1 tablet every day by oral route. 04/23 completed Not Available Not Available Not Available ergocalcife rol (vitamin D2) 1,250 mcg (50,000 unit) capsule TAKE 1 CAPSULE BY MOUTH ONCE A WEEK active Not Available Not Available No t Available albuterol sulfate HFA 90 mcg/actuati on aerosol inhaler INHALE 2 PUFFS BY MOUTH EVERY 4 TO 6 HOURS NEEDED active Not Available Not Available No t Available ondansetron 4 mg disintegrat ing tablet Take 1 tablet every 8 hours by oral route as needed. 04/23 completed Not Available Not Available Not Available fluticasone propionate 50 mcg/actuati on nasal spray,suspe nsion USE 2 SPRAY(S) IN EACH NOSTRIL ONCE DAILY active Not Available Not Available No t Available doxycycline hyclate 100 mg tablet TAKE 1 TABLET BY MOUTH TWICE DAILY WITH FOOD active Not Available Not Available No t Available loratadine 10 mg tablet TAKE 1 TABLET BY MOUTH ONCE DAILY NEEDED FOR ALLERGIES active Not Available Not Available No t Available metoclopram jewel 10 mg tablet Take 1 tablet 4 times a day by oral route. 04/23 completed Not Available Not Available Not Available Adult Low Dose Aspirin 81 mg tablet,misael yed release Take 1 tablet every day by oral route. 06/03 completed Not Available Not Available Not Available escitalopra m 10 mg tablet TAKE 1 TABLET BY MOUTH ONCE DAILY active Not Available Not Available No t Available nitrofurant oin monohydrate /macrocryst als 100 mg capsule TAKE 1 CAPSULE BY MOUTH EVERY 12 HOURS FOR 10 DAYS active Not Available Not Available No t Available FeroSul 325 mg (65 mg iron) tablet TAKE 1 TABLET BY MOUTH TWICE DAILY active Not Available Not Available No t Available Calcium with Vitamin D3 600 mg (carbonate) -10 mcg (400 unit) capsule Take 1 capsule twice a day by oral route. 04/23 completed Not Available Not Available Not Available Viibryd 20 mg tablet Take 1 tablet every day by oral route. 01/02 completed Not Available Not Available Not Available calcium 600 mg (as carbonate)- vitamin D3 20 mcg (800 unit) tablet Take 1 tablet twice a day by oral route for 30 days. 04/23 completed Not Available Not Available Not Available Vicodin 5 mg-300 mg tablet Take 1 tablet every 4 hours by oral route as needed. 04/23 completed Not Available Not Available Not Available Linzess 290 mcg capsule TAKE ONE CAPSULE BY MOUTH ONCE DAILY 04/23 completed Not Available Not Available Not Available Classic 28 mg iron-800 mcg tablet Take 1 tablet every day by oral route. 09/22 completed Not Available Not Available Not Available Trulance 3 mg tablet TAKE ONE TABLET BY MOUTH ONCE DAILY 01/02 completed Not Available Not Available Not Available EluRyng 0.12 mg-0.015 mg/24 hr vaginal ring INSERT ONE RING VAGINALLY AND LEAVE IN PLACE FOR 3 CONSECUTI VE WEEKS THEN REMOVE FOR 1 WEEK. INSERT NEW RING 7 DAYS AFTER THE LAST WAS REMOV active Not Available Not Available No t Available Vitals Date Recorded Body height Body mass index (BMI) Body weight Provider Name and Address Organization Details Last Updated DateTime 08/06/2017 152.4 cm 36.5 kg/m2 55061.68225 g Gloria Mccallum [place] - [facility] 08/06/2017 14:46:27 Date Recorded Body height Body mass index (BMI) Body weight Systolic blood pressure Diastolic blood pressure Provider Name and Address Organization Details Last Updated DateTime 09/22/2017 152.4 cm 35.5 kg/m2 77131.81 g 110 mm[Hg] 72 mm[Hg] Gloria Mccallum MA [facility] 8 12:22:09 Date Recorded Body height Body mass index (BMI) Body weight Provider Name and Address Organization Details Last Updated DateTime 07/13/2020 162.56 cm 32.8 kg/m2 99739.14 g Gloria Mccallum MA [facility] 07/13/2020 16:03:16 Social History Question Answer Notes LastModified by Organizat ion Details LastModified Time Tobacco Smoking Status Never Smoker Gregg Rocha RN null, [facility] 09/25/2016 15:14:33 Do You Have An Advance Directive? No Information not available 12/18/2016 What Is Your Level Of Alcohol Consumption? None Information not available 12/18/2016 If You Are , What Was Your Level Of Alcohol Consumption Prior To ? Occasional Information not available 12/18/2016 Plan No [email or web address] Information no t available 01/02/2017 Is Blood Transfusion Acceptable In An Emergency? Yes Information not available 12/18/2016 What Is Your Level Of Caffeine Consumption? None [email or web address] Information not available 01/02/2017 Live With Cats/exposure To Cat Litter No Information not available 12/18/2016 How Much Tobacco Do You Chew? None Information not available 12/18/2016 Are You Currently Employed? Yes Information not available 12/18/2016 What Type Of Diet Are You Following? REGULAR Information not available 12/18/2016 Which Illicit Or Recreational Drugs Have You Used? None Information not available 12/18/2016 Education 8 GED [email or web address] Information no t available 01/02/2017 What Is Your Occupation? [employer] Time Information not available 12/18/2016 Have There Been Any Changes To Your Family Or Social Situation? No Information not available 12/18/2016 Frequent Air Travel No Information not available 12/18/2016 Illicit Drugs Pre- None Information not available 12/18/2016 Live Alone Or With Others? With Others And Children [email or web address] Information not available 01/02/2017 Marital Status Informatio n not available 12/18/2016 What Was The Date Of Your Most Recent Tobacco Screening? 07/13/2020 Information not available 07/13/2020 How Many Children Do You Have? 3 Information not available 12/18/2016 Are There Any Occupational Health Risks Where You Work? None Information not available 12/18/2016 Seat Belts Used Routinely Yes Information not available 12/18/2016 Are You Sexually Active? Yes Information not available 12/18/2016 Do You Have Smoke And Carbon Monoxide Detectors In Your Home? Yes Information not available 12/18/2016 Are You Passively Exposed To Smoke? No Information not available 12/18/2016 Smoking Pre- No Information not available 12/18/2016 General Stress Level Low [email or web address] Information not available 06/03/2017 Do You Use Any Illicit Or Recreational Drugs? No Information not available 07/13/2020 Do You Use Sunscreen Routinely? Yes Information not available 12/18/2016 Supplements Gummies Information n ot available 12/18/2016 Sex: Unknown Functional Status Question Answer Note LastModified by Organization D etails LastModified Time What is your exercise level? Moderate [email or web address] Information not available 01/02/2017 Mental Status None recorded. Family History Relationship Description Onset Age of this Age Resolved Age Notes LastModified by Organization Details LastModified Time Father No current problems or disability Not available 06/04 15:07:13 Mother No current problems or disability Not available 06/04 15:07:13 Notes:father of unknown cancer, and Grandmother of breast cancer. Foster child. Medical History Condition Response Other N High Blood Pressure N Breast Cancer N Thyroid Problems N Kidney or Bladder Problems N Lung Disease N GI Problems N Depression N Blood Clots N Acne Y Eating Disorder N Breast Problem N Anemia Y Anesthesia Complications N Headaches/Migraines Y Ovarian Cancer N Diabetes N Anxiety Disorder N Muscle, Joint, or Bone Problems N Blood Transfusions N Seizures/Epilepsy N Polyps N Infertility N Acid Reflux (GERD) Y Cancer N Abuse/Domestic Violence N Asthma Y Endometriosis N High Cholesterol Y Hepatitis N Liver Disease N Heart Disease N Pre-Eclampsia N Osteoporosis N Gynecological History Statement/Question Response Abnormal Pap N Flow Heavy On BCP's at Conception? N STIs/STDs N HPV Vaccine Y Duration of Flow (days) 6 Age at Menarche 16 Current Control Method Tubal Ligat ion Age at First Child 19 Frequency of Cycle (Q days) 32 Sexually Active? Y Menses Monthly Y Date of Last Pap Smear 12/18/2016 Sexual Problems? N LMP Definite Desired Control Method Sterilizati on Obstetrics History GPAL:G 6 P 4 0 2 4 Type Value Multiple Births 0 Full Term 4 Induced 2 Spontaneous 0 Premature 0 Living 4 Ectopics 0 Total 6 Immunizations Vaccine Type Date Status Note Provider Nam e and Address Organization Details Recorded Time Influenza, split virus, quadrivalent, preservative 0 completed MARY JANE [place] - [facility] 07/13/2020 16:03:40 COVID-19, mRNA, LNP-S, PF, 100 mcg/0.5mL dose or 50 mcg/0.25mL dose 1 completed MARY JANE [place] - [facility] 07/13/2020 16:04:31 Influenza, split virus, quadrivalent, preservative 7 completed Not Available [facility] 06/19/2019 02:39:53 Tdap 8 completed Not Available [facility] 06/19/2019 02:34:53 Past Encounters Encounter ID Performer Location Encounter Start Date Encounter Closed Date Diagnosis/Indication Diagnosis SNOMED-CT Code Diagnosis ICD10 Code Diagnosis Note [id number] Nathan Felix HC (RN PALLIATIVE) [address] [place] [address] 09/25/2016 14:45:03 09/26/2016 13:46:27 Gynecologic examination 61187088 Z01.419 Polycystic ovaries 83226 008 E28.2 Family ivan nning surveillance 554553043 Z30.09 Hirsutism 596254249 L68. 0 Depressive disorder 3548 9007 F32.9 [id number] Nathan Felix HC (RN PALLIATIVE) [address] [place] [id number] 0 12/18/2016 14:20:09 12/18/2016 15:44:47 Routine care 004186868 Z34.91 Subchorionic hematoma 60 2323743 O41.8X99 Constipation 70172030 K5 9.00 Hyperemesi s gravidarum 56656753 O21.0 Asthma 506216227 J45.90 9 [id number] EMMA Hoffman (RN PALLIATIVE) [address] [place] [id number] 0 01/02/2017 15:06:09 01/02/2017 15:54:00 [id number] Nathan Felix (RN PALLIATIVE) [address] [place] [id number] 0 01/20/2017 14:10:31 01/23/2017 15:26:40 Routine care 031286705 Z34.91 AFP at 16 weeks. Chronic id iopathic constipation 96998086 K59.04 Failed Trulance, Amitiza, and Miralax... [facility]IC with [facility]. [id number] Nathan Felix (RN PALLIATIVE) [address] [place] [id number] 0 02/19/2017 15:04:22 02/20/2017 15:54:15 Routine care 113421831 Z34.91 AFP at 16 weeks. Hyperemesi s gravidarum 27662308 O21.0 iv fluids Sinusitis 92356852 J32.9 [id number] Nathan Felix (RN PALLIATIVE) [address] [place] [id number] 0 03/24/2017 14:32:12 03/24/2017 15:39:39 Routine care 225487995 Z34.82 Deliveries by [id number] O82 Female sterilization 608 98493 Z30.2 Anemia of 2734 2003 O99.019 Administra tion of influenza vaccine 78567268 Z23 [id number] Nathan Felix (RN PALLIATIVE) [address] [place] [id number] 0 04/23/2017 09:52:13 04/23/2017 10:58:02 Diabetes mellitus screening 455519684 Z13.1 Routine an tenatal care 328421164 Z34.82 Deliveries by [id number] O82 Female sterilization 608 19162 Z30.2 Chronic id iopathic constipation 42863842 K59.04 Acute lowe r urinary tract infection 576856467 N39.0 [id number] MD Isidro Villegas (RN PALLIATIVE) [address] [place] [address] [id number] 0 05/16/2017 15:51:47 05/19/2017 11:40:58 Pneumonia 359785347 J18.9 called ER at [facility] and discussed with ER physician Dr. Cornell about the patient. Patient to [facility] ER. Routine an tenatal care 683714473 Z34.93 RhD negative 548921457 Z 01.83 PATIENT TO GET RHOGAN SHOT IN ER. NOTIFIED DR. CORNELL. [id number] Nathan Felix (RN PALLIATIVE) [address] [place] [id number] 0 06/03/2017 11:32:44 06/03/2017 12:42:07 Routine care 135767600 Z34.82 Female sterilization 608 79090 Z30.2 Deliveries by [id number] O82 Pneumonia and influenza 779630340 J11.00 influenza a; confirmed in ED Benign ges tational thrombocytopenia 560926673 O99.113 repeat labs at 34 weeks [id number] Nathan Felix (RN PALLIATIVE) [address] [place] [address] [id number] 0 06/17/2017 14:41:23 06/17/2017 16:57:17 Routine care 077924903 Z34.82 Deliveries by [id number] O82 Female sterilization 608 09688 Z30.2 [id number] Nathan Felix (RN PALLIATIVE) [address] [place] [address] [id number] 0 07/01/2017 14:28:23 07/01/2017 15:32:45 Routine care 569384136 Z34.82 - induced hypertension 88654291 O13.9 Deliveries by [id number] O82 Female sterilization 608 30359 Z30.2 Nonalcohol ic steatohepatitis 428812175 K75.81 [id number] Nathan Felix (RN PALLIATIVE) [address] [place] [address] [id number] 0 07/08/2017 12:49:35 07/08/2017 14:36:22 Routine care 968832591 Z34.82 Deliveries by [id number] O82 discussed expectatio ns with pt Nonalcohol ic steatohepatitis 852827768 K75.81 Dehydration 81681973 E86 .0 sent instructio ns to [place] for when pt arrives [id number] Nathan Felix HC (RN PALLIATIVE) [address] [place] [id number] 0 07/16/2017 10:26:38 07/16/2017 11:52:12 Routine care 460232542 Z34.82 - induced hypertension 72051205 O13.9 Deliveries by [id number] O82 Planned for 07/18/17; repeat C-sec Female sterilization 608 67722 Z30.2 Planned for 07/18/17 at time of C-sec [id number] Nathan Felix HC (RN PALLIATIVE) [address] [place] [address] [id number] 0 08/06/2017 14:33:51 08/06/2017 15:55:52 Deliveries by [id number] O82 Female sterilization 608 29567 Z30.2 Family ivan nning surveillance 514332015 Z30.09 Postoperative visit 1836 00211 Z09 [id number] Nathan Felix (RN PALLIATIVE) [address] [place] [address] [id number] 0 09/22/2017 10:58:57 09/22/2017 12:55:41 state 84652259 Z39.2 Acute urin kadi tract infection 521910430 N39.0 [id number] Nathan Felix (RN PALLIATIVE) [address] [place] [address] [id number] 0 07/13/2020 08:44:37 07/14/2020 07:14:12 Acute urinary tract infection 250081082 N39.0 Recurrent urinary tract infection 723631782 N39.0 Health Concerns Section Related Observation LastModified by Organization Detai ls LastModified Time None Recorded Concern Status LastModified by Organization Details LastModified Time None Recorded Advance Directives Directive N: Payers Encounter Date Sequence Insurance Name Policy Number Policy Bellamy Covered Member ID Bellamy Member ID Guarantor Name 08/06/2017 1 [facility] (MEDICAID HMO) [id number] Yodit Foss [id number] Yodit Foss 09/22/2017 1 [facility] (MEDICAID HMO) [id number] Yodit Moorerison [id number] Yodit Moorerison 07/13/2020 1 [facility] (MEDICAID HMO) [id number] 0003 Yodit Moorerison [id number] Yodit Moorerison Notes Date Note Type Note Provider Name and Address Organization Details Recorded Time 08/06/2017 text/html VisitReported bypatient.Associate d Symptoms:no abnormal bleeding; no pelvic pain; laceration well healed; no constipation; no fecal incontinence; no dysuria; no urinary incontinence; no fever; no problems; no mastitis 32 yo F, who gave via c section and had tubal done 07/18/17, follows up for an incision check. No compliants at this time. Nathan curran [facility] 08/06/2017 18:02:08 09/22/2017 text/html Recurrent UTIReported bypatient.Associate d Symptoms:no incontinence; no nocturia; no incomplete emptying; no flank pain; no back pain; no kidney stones;frequency;ur gency;dysuria;hemat uria 32yo CAF here for evaluation of hematuria Nathan curran [facility] 09/22/2017 20:31:40 07/13/2020 text/html Recurrent UTIReported bypatient.Associate d Symptoms:no frequency; no urgency; no incontinence; no nocturia; no dysuria; no hematuria; no incomplete emptying; no flank pain; no back pain; no kidney stones 32yo with history of UTI, ca, CIC, and PCOS here via phone for possible UTI. Nathan curran [facility] 07/13/2020 16:23:08 OBGyn Episode Ob Episode Information Episode Created Date Number of Fetuses Patient Bloodtype Patient rh Status Prepregnancy Weight lbs Domestic Partner Domestic Partner Phone Father Name Carbonating Stone Cleaner Status 09/26/19 17 1 CLOSED Fetus Data First Name Last Name Admitted to NICU Weight (g) Sex Living Outcome Pediatric Complications Fetus ID Race Codes Race Delivery Type 2778.25 1 M Full Term 25620 Repeat Baron Calculation Initial Baron Date Initial Exam Date Initial Exam Provider Initial Ultrasound Date Last Menstrual Period Date Ultra Sound Weeks Gestation 0 Eighteen To Twenty Week Baron Update Ultra Sound Date Fundal Height At Umbil Quickening Date Ultra Sound Latest Weeks Gestation Final Baron Confirmed By Final Baron Confirmed Date Final Baron Date Ultra Sound Latest Days Gestation 0 0 Menstrual History Last Menstrual Date Menses Monthly On Bcp Conception Prior Menses Frequency Hcg Plus Date Menarche Onset Age Delivery Information Delivery Date Delivery Type Labor Anesthesia Weeks Gestation Incision Type Labor Labor Length Hrs Delivered By Post Complications Tubal Sterilization Discharge Date Comments 1 Regional-Sp inal 38 false Discharge Information Feeding Method Contraceptive Method Maternal HG B and HCT Levels Ob Episode Information Episode Created Date Number of Fetuses Patient Bloodtype Patient rh Status Prepregnancy Weight lbs Domestic Partner Domestic Partner Phone Father Name Carbonating Stone Cleaner Status 09/26/19 17 1 CLOSED Fetus Data First Name Last Name Admitted to NICU Weight (g) Sex Living Outcome Pediatric Complications Fetus ID Race Codes Race Delivery Type 3373.36 3704 M Full Term [id number] Repeat Baron Calculation Initial Baron Date Initial Exam Date Initial Exam Provider Initial Ultrasound Date Last Menstrual Period Date Ultra Sound Weeks Gestation 0 Eighteen To Twenty Week Baron Update Ultra Sound Date Fundal Height At Umbil Quickening Date Ultra Sound Latest Weeks Gestation Final Baron Confirmed By Final Baron Confirmed Date Final Baron Date Ultra Sound Latest Days Gestation 0 0 Menstrual History Last Menstrual Date Menses Monthly On Bcp Conception Prior Menses Frequency Hcg Plus Date Menarche Onset Age Delivery Information Delivery Date Delivery Type Labor Anesthesia Weeks Gestation Incision Type Labor Labor Length Hrs Delivered By Post Complications Tubal Sterilization Discharge Date Comments 7 Regional-Sp inal 39 false Discharge Information Feeding Method Contraceptive Method Maternal HG B and HCT Levels Ob Episode Information Episode Created Date Number of Fetuses Patient Bloodtype Patient rh Status Prepregnancy Weight lbs Domestic Partner Domestic Partner Phone Father Name Carbonating Stone Cleaner Status 09/26/19 17 1 CLOSED Fetus Data First Name Last Name Admitted to NICU Weight (g) Sex Living Outcome Pediatric Complications Fetus ID Race Codes Race Delivery Type 2438.05 7 M Full Term [id number] Primary Baron Calculation Initial Baron Date Initial Exam Date Initial Exam Provider Initial Ultrasound Date Last Menstrual Period Date Ultra Sound Weeks Gestation 0 Eighteen To Twenty Week Baron Update Ultra Sound Date Fundal Height At Umbil Quickening Date Ultra Sound Latest Weeks Gestation Final Baron Confirmed By Final Baron Confirmed Date Final Baron Date Ultra Sound Latest Days Gestation 0 0 Menstrual History Last Menstrual Date Menses Monthly On Bcp Conception Prior Menses Frequency Hcg Plus Date Menarche Onset Age Delivery Information Delivery Date Delivery Type Labor Anesthesia Weeks Gestation Incision Type Labor Labor Length Hrs Delivered By Post Complications Tubal Sterilization Discharge Date Comments 5 Regional-Sp inal 37 false Placenta l abruption Discharge Information Feeding Method Contraceptive Method Maternal HG B and HCT Levels Ob Episode Information Episode Created Date Number of Fetuses Patient Bloodtype Patient rh Status Prepregnancy Weight lbs Domestic Partner Domestic Partner Phone Father Name Carbonating Stone Cleaner Status 12/19/19 17 1 O Negative 190 Rudy Craigr Rudy Koenig CLOSED Fetus Data First Name Last Name Admitted to NICU Weight (g) Sex Living Outcome Pediatric Complications Fetus ID Race Codes Race Delivery Type Aashish Rudy Craig r false 3005.04 7 M true Full Term [id number] 2106-3 White Repeat Problems Problem Notes having a baby boy per ultras ound, circumcision is YES, no name as of yet, maybe Able, but not for sure. Dr. Koenig for energy economist. , PPBTL for PPBC. Brett HINTON 03/24/2017 mds flu shot given 03/24/2017 mds Problem Name Start Date End Date Resolution Snomed Code Not e Deliveries by 03/24/2017 [id number] Nonalcoholic steatohepatitis 10/01/2016 [id number] Female sterilization 03/24/2017 [id number] Polycystic ovaries 09/25/2016 [id number] Candidiasis of vagina 07/07/2017 1002010 0 Pneumonia 05/16/2017 [id number] Acute lower urinary tract infection [id number] Chronic idiopathic constipation 01/20/2017 73147423 Pneumonia and influenza 06/03/2017 [id number] Baron Calculation Initial Baron Date Initial Exam Date Initial Exam Provider Initial Ultrasound Date Last Menstrual Period Date Ultra Sound Weeks Gestation 07/30/2017 12/18/2016 azeb 12/24/2016 10/17/2016 8 Eighteen To Twenty Week Baron Update Ultra Sound Date Fundal Height At Umbil Quickening Date Ultra Sound Latest Weeks Gestation Final Baron Confirmed By Final Baron Confirmed Date Final Baron Date Ultra Sound Latest Days Gestation 12/25/19 17 8 [email or web address] 05/20/2017 07/30/19 18 6 Pre-danny Flowsheet Flowsheet Date 12/18/2016 Gifford Score Blood Edema Fundus Height Fundus Units Glucose Ketones Leukocytes Nitrite Labor Signs Protein Cervic Dilation Cervic Effacement Cervic Station trace none none negative neg Type Weight in lbs Pre/Post Dialysis Refused 190.174568655948 BP Diastolic BP Location Tested BP Systolic BP Type 76 96 Fetus Heart Rate Present Fetus Movement Comments Flowsheet Date 01/02/2017 Gifford Score Blood Edema Fundus Height Fundus Units Glucose Ketones Leukocytes Nitrite Labor Signs Protein Cervic Dilation Cervic Effacement Cervic Station Type Weight in lbs Pre/Post Dialysis Refused BP Diastolic BP Location Tested BP Systolic BP Type Fetus Heart Rate Present Fetus Movement Comments Flowsheet Date 01/20/2017 Gifford Score Blood Edema Fundus Height Fundus Units Glucose Ketones Leukocytes Nitrite Labor Signs Protein Cervic Dilation Cervic Effacement Cervic Station neg none 12.5 wks trace trace none neg Type Weight in lbs Pre/Post Dialysis Refused 191.555522854083 BP Diastolic BP Location Tested BP Systolic BP Type 68 108 sitting Fetus Heart Rate Present A 141 Present Fetus Movement A No Comments Repeat ultrasound. Flowsheet Date 02/19/2017 Gifford Score Blood Edema Fundus Height Fundus Units Glucose Ketones Leukocytes Nitrite Labor Signs Protein Cervic Dilation Cervic Effacement Cervic Station neg none 17 wks none negative none trace Type Weight in lbs Pre/Post Dialysis Refused 192.455062353460 BP Diastolic BP Location Tested BP Systolic BP Type 70 100 sitting Fetus Heart Rate Present A 138 Present Fetus Movement A No Comments Hyperemesis gravidarum sent to hospital for fluids Flowsheet Date 03/24/2017 Gifford Score Blood Edema Fundus Height Fundus Units Glucose Ketones Leukocytes Nitrite Labor Signs Protein Cervic Dilation Cervic Effacement Cervic Station neg none 22 cm none negative none neg Type Weight in lbs Pre/Post Dialysis Refused 197.189967371406 BP Diastolic BP Location Tested BP Systolic BP Type 58 100 sitting Fetus Heart Rate Present A 142 Present Fetus Movement A Yes Comments Seen at [facility] for shampoo incident. Flowsheet Date 04/23/2017 Gifford Score Blood Edema Fundus Height Fundus Units Glucose Ketones Leukocytes Nitrite Labor Signs Protein Cervic Dilation Cervic Effacement Cervic Station neg none 26 wks none negative Other (see comments ) neg Type Weight in lbs Pre/Post Dialysis Refused 204.752158299895 BP Diastolic BP Location Tested BP Systolic BP Type 60 90 sitting Fetus Heart Rate Present A 147 Present Fetus Movement A Yes Comments occasional headache, gtt, td ap next Flowsheet Date 05/16/2017 Gifford Score Blood Edema Fundus Height Fundus Units Glucose Ketones Leukocytes Nitrite Labor Signs Protein Cervic Dilation Cervic Effacement Cervic Station neg none 29 cm 2+ small none trace Type Weight in lbs Pre/Post Dialysis Refused 205.965613985567 BP Diastolic BP Location Tested BP Systolic BP Type 76 120 sitting Fetus Heart Rate Present A 129 Present Fetus Movement A Yes Comments Pt states going to [facility] in [place] last night c/o cough and SOB and was diagnosed with pneumonia on right lung and was discharged home on azithromycin. She say she took azithromycin today. She say she has sore throat today. Temp in office today is 98.2. Patient c/o cough. Denies SOB. She say she had fever of 101 at home. called ER at [facility] and discussed with ER physician Dr. Cornell about the patient. Also notified Dr. Cornell that patient need rhogam shot in ER. He said he will take care of patient. Patient to [facility] ER.Also notified nurse Tihsa in [facility] TO get NST and BPP.PTL, PREECLAMPSIA PRECAUTIONS AND KICK COUNTS DISCUSSED. Flowsheet Date 06/03/2017 Gifford Score Blood Edema Fundus Height Fundus Units Glucose Ketones Leukocytes Nitrite Labor Signs Protein Cervic Dilation Cervic Effacement Cervic Station trace none 32 cm none negative none neg Type Weight in lbs Pre/Post Dialysis Refused 206.267863340952 BP Diastolic BP Location Tested BP Systolic BP Type 70 102 sitting Fetus Heart Rate Present A 154 Present Fetus Movement A Yes Comments OBFU- will repeat CBC to mon itor platelets Flowsheet Date 06/17/2017 Gifford Score Blood Edema Fundus Height Fundus Units Glucose Ketones Leukocytes Nitrite Labor Signs Protein Cervic Dilation Cervic Effacement Cervic Station neg none 33 cm none negative Uterine Contract ions neg Type Weight in lbs Pre/Post Dialysis Refused 203.28110684585 BP Diastolic BP Location Tested BP Systolic BP Type 75 110 sitting Fetus Heart Rate Present A 142 Present Fetus Movement A Yes Comments KAVIN; US to be ordered at nex t visit Flowsheet Date 07/01/2017 Gifford Score Blood Edema Fundus Height Fundus Units Glucose Ketones Leukocytes Nitrite Labor Signs Protein Cervic Dilation Cervic Effacement Cervic Station neg 1+ 37 cm trace trace none trace 0cm 0% -4 Type Weight in lbs Pre/Post Dialysis Refused 206.315569327338 BP Diastolic BP Location Tested BP Systolic BP Type 70 126 sitting Fetus Heart Rate Present A 159 Present Fetus Movement A Yes Comments 36 wks labs done with CMP to check for MAYA, pt flushing and itching Flowsheet Date 07/08/2017 Gifford Score Blood Edema Fundus Height Fundus Units Glucose Ketones Leukocytes Nitrite Labor Signs Protein Cervic Dilation Cervic Effacement Cervic Station neg 1+ 37 none large Terry Hernandes 3+ 0cm 0% Type Weight in lbs Pre/Post Dialysis Refused 205.556533807096 BP Diastolic BP Location Tested BP Systolic BP Type 74 110 sitting Fetus Heart Rate Present A 154 Present Fetus Movement A Yes Comments ketones present in UA, instr uctions for hydrotherapy sent to [facility] Flowsheet Date 07/16/2017 Gifford Score Blood Edema Fundus Height Fundus Units Glucose Ketones Leukocytes Nitrite Labor Signs Protein Cervic Dilation Cervic Effacement Cervic Station neg none 38 cm none negative Cramping neg 0cm 0% -4 Type Weight in lbs Pre/Post Dialysis Refused 205.722528020292 BP Diastolic BP Location Tested BP Systolic BP Type 82 124 sitting Fetus Heart Rate Present A 154 Present Fetus Movement A Yes Comments Pt feeling very ill; symptom s consistent with PIH, repeat c/s and tubal tuesday 07/18 admit tomorrow magnesium sulfate Flowsheet Date 08/06/2017 Gifford Score Blood Edema Fundus Height Fundus Units Glucose Ketones Leukocytes Nitrite Labor Signs Protein Cervic Dilation Cervic Effacement Cervic Station Type Weight in lbs Pre/Post Dialysis Refused 187.789909712058 BP Diastolic BP Location Tested BP Systolic BP Type Fetus Heart Rate Present Fetus Movement Comments Menstrual History Last Menstrual Date Menses Monthly On Bcp Conception Prior Menses Frequency Hcg Plus Date Menarche Onset Age 0510/17/2016 false false 30 11/16/201 7 13 Genetic Screening And Infection History Question Response Note Patient's Age Will Be 35 Yea rs Or Older At Estimated Date of Delivery false Thalassemia (English, Congolese, Mediterranean, Or Background): MCV < 80 false Neural Tube Defect (Meningom yelocele, Spina Bifida, Or Anencephaly) false Congenital Heart Defect false Down Syndrome false Charly-Sachs (eg, Temple, Cajun, Tunisian-[place]) f alse Danyel Disease false Sickle Cell Disease Or Trait () false Hemophilia Or Other Blood Disorders false Muscular Dystrophy false Cystic Fibrosis false Gabbie's Chorea false Mental Retardation/Autism false If Yes, Was Person Tested For Fragile X? false Other Inherited Genetic Or Chromosomal Disorder false Maternal Metabolic Disorder (eg, Type 1 Diabetes , PKU) false Patient Or Baby's Father Had A Child With Defects Not Listed Above false Recurrent Loss, Or A Stillbirth false Medications (including Suppl ements, Vitamins, Herbs, OTC Drugs), Illicit/Recreational Drugs, Alcohol true Gummie vit amins If Yes, Agent(s) And Strength/Dosage false Any Other Genetic History false Live With Someone With TB Or Exposed To TB false Patient Or Partner Has History Of Genital Herpes false Rash Or Viral Illness Since Last Menstrual Perio d false History Of STD, Gonorrhea, Chlamydia, HPV, Syphi lis false Other Infection History false Plans and Education First Trimester Discussed Date Discussion Item Discussion Note Discuss ed By 03/24/2017 Anticipated course o f care 03/24/2017 Alcohol [id number] 03/24/2017 Intimate partner violence ms [email or web address] 03/24/2017 Environmental/work hazards m [email or web address] 03/24/2017 Screening for aneuploidy msi mpson19 03/24/2017 Nutrition counseling ; special diet; dietary precautions (mercury, listeriosis) [email or web address] 03/24/2017 Childbirth classes/h ospital facilities given handout at initial ob visit [email or web address] 03/24/2017 HIV and other routin e tests done at initial ob visit [email or web address] 03/24/2017 Risk factors identif ied by history [email or web address] 03/24/2017 Weight gain counseling msimp [email or web address] 03/24/2017 Exercise [email or web address] 03/24/2017 Teratogens 03/24/2017 Use of any medicatio ns (including supplements, vitamins, herbs, or OTC drugs) [email or web address] 01/02/2017 03/24/2017 Sexual activity [email or web address] 03/24/2017 Tobacco/smoking cess ation counseling (ask, advise, assess, assist, and arrange) [email or web address] 03/24/2017 Illicit/recreational drugs [email or web address] 03/24/2017 Dental care given dental con sent at initial ob visit [email or web address] 03/24/2017 Travel [email or web address] 03/24/2017 Seat belt use [email or web address] 03/24/2017 Indications for ultrasonography [id number] 03/24/2017 Avoidance of saunas or hot tubs 03/24/2017 Toxoplasmosis precau tions (cats/raw meat) [email or web address] Second Trimester Discussed Date Discussion Item Discussion Note Discuss ed By 05/16/[address] care provider [address] nadia franklin 01/02/2017 family planning/tubal sterilization Sterilization wants PPBTL [email or web address] 01/02/2017 Depression screening (when indicated) No hx [email or web address] 05/16/2017 Abnormal lab values nahun 05/16/2017 [facility]s and symptoms o f labor [facility] 05/16/2017 [facility] 05/16/2017 Tobacco/smoking cess ation counseling (ask, advise, assess, assist, and arrange) [facility] Third Trimester Discussed Date Discussion Item Discussion Note Discuss ed By 01/02/2017 Anesthesia plans Repeat jgarret t27 01/02/2017 Circumcision Yes 05/16/2017 Postterm counseling nahun 03/24/2017 movement monitoring given kick counts 03/24/2017 mds [email or web address] 01/02/2017 Trial of labor after (TOLAC) counseling n/a reoeat csection 05/16/2017 Signs and symptoms o f preeclampsia [facility] Delivery Information Delivery Date Delivery Type Labor Anesthesia Weeks Gestation Incision Type Labor Labor Length Hrs Delivered By Post Complications Tubal Sterilization Discharge Date Comments 8 None Regional-Sp inal 38.[address] e false Dr[address] Sow None true 07/20/2017 Discharge Information Feeding Method Contraceptive Method Maternal HG B and HCT Levels Breast Tubal
--- OUTSIDE RECORDS SUMMARY | 2024-08-23 09:45 | XMS_ITS | Encounter Summary ---
Author Organization [employer] Address [address] [place] [address] Care Team Providers Care Medical Records Auditor Name Role Phone Gautam Niño MD Primary Care Provider [phone] Encounter Details Date Type Department Care Team (Late st Contact Info) Description 03/30/2018 Lab Requisition [facility] General Laboratory Services [facility] [address] [place] [address] [place] [address] 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 Gender Identity Not on file Sexual Orientation Not on file documented as of this encounter Plan of Treatment Not on file documented as of this encounter Procedures Procedure Name Priority Date/Time Associated Diagnosis Comments HEPATITIS B SURFACE AB, QUANT Routine 03/30/2018 3:05 PM CDT Encounter for pre-employment examination VARICELLA ZOSTER IGG Routine 03/30/2018 3:05 PM CDT Encounter for pre-employment examination documented in this encounter Results * VARICELLA ZOSTER IGG (03/30/2018 3:05 PM CDT) VZV IGG Positive 03/31/2018 1:38 PM CDT [facility] Comment: Results suggest response to immunization or prior exposure to the virus. REFERENCE VALUE Vaccinated: Positive (>=1.1 AI) Unvaccinated: Negative (<=0.8 AI) VARICELLA IGG INDEX 3.6 03/31/2018 1:38 PM CDT [facility] Comment: Test Performed by: [facility] [address] [place] [address] Blood Collection / Unknown 03/30/2018 3:05 PM CDT 03/30/2018 9:16 PM CDT Jayant Giordano MD CHEMISTRY ORDERABLES Final R esult [facility] * HEPATITIS B SURFACE AB, QUANT (03/30/2018 3:05 PM CDT) Pathologist [facility] HEPATITIS B SURF AB,QN 159.0 mlU/mL 03/30/2018 10:49 PM CDT [facility] HEPATITIS B SURFACE AB INTERP Reactive See Interp 03/30/2018 10:49 PM CDT [facility] Blood Collection / Unknown 03/30/2018 3:05 PM CDT 03/30/2018 9:16 PM CDT Narrative [facility] - 03/30/2018 10:49 PM CDT Patient has immunity to Hepatitis B virus. This assay is used to determine immune status to Hepatitis B as greater than or equal to 10 mIU/mL as per CDC guidelines (MMWR:vol 55: RR-16, 2006). Jayant Giordano MD CHEMISTRY ORDERABLES Final R esult [facility] CLIA# [id number] [address] [place] [address] documented in this encounter Visit Diagnoses Diagnosis Encounter for pre-employment examination Health examination of defined subpopulation documented in this encounter Care Teams Medical Records Auditor Relationship Specialty Start Date End Date Gautam Niño MD [address] [place] [address] PCP - General Family Practice 04/02/18 documented as of this encounter
--- OUTSIDE RECORDS SUMMARY | 2024-08-23 09:45 | XMS_ITS | Clinical Summary ---
Author Organization [facility] Address [address] [place] [address] Phone Care Team Providers Care Document Restorer Name Role Phone Gautam Niño MD Primary Care Provider Allergies No known active allergies Medications vit-iron fumarate-fa () 28-0.8 mg Oral Tab Take 1 Tab by mouth daily. Active fluticasone-sridevi meterol (ADVAIR DISKUS) 250-50 mcg/dose Inhalation DsDv Take 1 Puff by inhalation 2 times daily. 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 Gender Identity Not on file Sexual Orientation Not on file Last Filed Vital Signs Vital Sign Reading Time Taken Comments Blood Pressure 110/59 04/09/2010 6:53 PM SPINNING MULE TENDER Pulse 103 04/09/2010 6:53 PM SPINNING MULE TENDER Temperature 35.9 C (96.7 F) 04/09/2010 6:53 PM SPINNING MULE TENDER Respiratory Rate 18 04/09/2010 6:53 PM SPINNING MULE TENDER Oxygen Saturation - - Inhaled Oxygen Concentration - - Weight 65.3 kg (144 lb) 04/09/2010 6:53 PM SPINNING MULE TENDER Height 162.6 cm (5' 4 ) 04/09/2010 6:53 PM SPINNING MULE TENDER Body Mass Index 24.72 04/09/2010 6:53 PM SPINNING MULE TENDER Plan of Treatment Health Maintenance Due Date Last Done Comments HEPATITIS B VACCINES (1 of 3 - 19+ 3-dose series) 2006 PNEUMOCOCCAL VACCINE 0-49 YEARS (1 of 2 - PCV) 2006 PAP SMEAR 2008 CERVICAL CANCER SCREENING 2017 HPV/Cotest 2017 PAP SMEAR 2017 INFLUENZA VACCINE (#1) 2024 8, 03/24/2017 DTAP/TDAP/TD VACCINES (2 - T d or Tdap) 06/17/2027 06/17/2017 RSV VACCINE (60+ or ) (1 - 1-dose 75+ series) 2062 HPV VACCINES Aged Out No longer eligi ble based on patient's age to complete this topic Advance Directives For more information, please contact: [phone] * Full Code (Latest Code Status on File) Date Activated Date Inactivated Comments 04/09/2010 7:21 PM 04/09/2010 10:55 PM Care Teams Document Restorer Relationship Specialty Start Date End Date Gautam Niño MD [address] [place] [address] PCP - General Family Practice 04/02/18
--- OUTSIDE RECORDS SUMMARY | 2024-08-23 09:45 | XMS_ITS | Encounter Summary ---
Author Organization [employer] Address [address] [place] [address] Care Team Providers Care Road Engineer Name Role Phone Gautam Niño MD Primary Care Provider [phone] Encounter Details Date Type Department Care Team (Late st Contact Info) Description 06/17/2018 Lab Requisition [facility] General Laboratory Services [address] [facility] [address] [place] [place] [address] Chris Chino MD [address] [address] Social History Tobacco Use Types Packs/Day Years Used Date Smoking Tobacco: Never Alcohol Use Standard Drinks/Week Comments No 0 (1 standard drink = 0.6 oz pur e alcohol) Comments Yes Sex and Gender Information Value Date Recorded Sex Assigned at Not on file Legal Sex 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 Gender Identity Not on file Sexual Orientation Not on file documented as of this encounter Plan of Treatment Not on file documented as of this encounter Procedures Procedure Name Priority Date/Time Associated Diagnosis Comments HEPATITIS B SURFACE AB, QUANT Routine 06/17/2018 10:15 AM SMALL ANIMAL CARETAKER HIV DETECTION W/REFLX CONFIRMATION Routine 06/17/2018 10:15 AM SMALL ANIMAL CARETAKER HEPATITIS C RNA PCR, QUANTITATIVE Routine 06/17/2018 10:15 AM SMALL ANIMAL CARETAKER HEPATITIS B SURFACE ANTIGEN Routine 06/17/2018 10:15 AM SMALL ANIMAL CARETAKER HEPATITIS C ANTIBODY Routine 06/17/2018 10:15 AM SMALL ANIMAL CARETAKER documented in this encounter Results * HEPATITIS C RNA PCR, QUANTITATIVE (06/17/2018 10:15 AM SMALL ANIMAL CARETAKER) [facility] HEPATITIS C RNA PCR NOT DETECTED Not detected 06/19/2018 2:25 PM SMALL ANIMAL CARETAKER [facility] Blood Collection / Unknown 06/17/2018 10:15 AM SMALL ANIMAL CARETAKER 06/17/2018 6:34 PM SMALL ANIMAL CARETAKER [facility] - 06/19/2018 2:25 PM SMALL ANIMAL CARETAKER The quantification range of this assay is 10 to 10,000,000 IU/mL (1.00 log to 8.00 log IU/mL). Testing was performed using the Aptima HCV RNA Assay (VHT) with the Ch[employer] System. Chris Chino MD CHEMISTRY ORDERABLES Final Result Performing Organization Address [facility] Co nv Phone Number [facility]# [id number] [address] [place] [address] * HIV DETECTION W/REFLX CONFIRMATION (06/17/2018 10:15 AM SMALL ANIMAL CARETAKER) [facility] HIV-1 AND 2 ABS AND HIV-1 AG Non-reacti ve Non-reacti ve 06/17/2018 8:19 PM SMALL ANIMAL CARETAKER [facility] Blood Collection / Unknown 06/17/2018 10:15 AM SMALL ANIMAL CARETAKER 06/17/2018 6:34 PM SMALL ANIMAL CARETAKER [facility] - 06/17/2018 8:19 PM SMALL ANIMAL CARETAKER Non-Reactive results does not rule out HIV infection. If acute HIV-1 infection is suspected, submit plasma specimen for HIV-1 RNA quantification test (HIVQU). Chris Chino MD CHEMISTRY ORDERABLES Final Result Performing Organization Address [facility]/ZIP Co de Phone Number [facility] CLIA# [id number] [address] [place] [address] * HEPATITIS C ANTIBODY W REFLEX (06/17/2018 10:15 AM SMALL ANIMAL CARETAKER) HEPATITIS C AB NON-REACTI VE Non-react [email or web address] 06/17/2018 7:33 PM SMALL ANIMAL CARETAKER [facility] Comment: If a patient is known to be at high risk for HCV infection, or is symptomatic, and the physician's suspicion of HCV infection is high, HCV RNA testing is often employed and is of diagnostic value, even after an initial negative anti-HCV test result. Signal to cutoff index is <1.00. Blood Collection / Unknown 06/17/2018 10:15 AM SMALL ANIMAL CARETAKER 06/17/2018 6:34 PM SMALL ANIMAL CARETAKER Chris Chino MD CHEMISTRY ORDERABLES Final Result [facility]# [id number] [address] [place] [address] * HEPATITIS B SURFACE ANTIGEN (06/17/2018 10:15 AM SMALL ANIMAL CARETAKER) Pathologist [facility] HEPATITIS B SURFACE AG NON-REACTI VE Non-reacti ve 06/17/2018 7:45 PM SMALL ANIMAL CARETAKER [facility] Blood Collection / Unknown 06/17/2018 10:15 AM SMALL ANIMAL CARETAKER 06/17/2018 6:34 PM SMALL ANIMAL CARETAKER Chris Chino MD CHEMISTRY ORDERABLES Final Result [facility]# [id number] [address] [place] [address] * HEPATITIS B SURFACE AB, QUANT (06/17/2018 10:15 AM SMALL ANIMAL CARETAKER) Pathologist [facility] HEPATITIS B SURF AB,QN 166.9 mlU/mL 06/17/2018 7:45 PM SMALL ANIMAL CARETAKER [facility] HEPATITIS B SURFACE AB INTERP Reactive See Interp 06/17/2018 7:45 PM SMALL ANIMAL CARETAKER [facility] Blood Collection / Unknown 06/17/2018 10:15 AM SMALL ANIMAL CARETAKER 06/17/2018 6:34 PM SMALL ANIMAL CARETAKER Narrative [facility] - 06/17/2018 7:45 PM SMALL ANIMAL CARETAKER Patient has immunity to Hepatitis B virus. This assay is used to determine immune status to Hepatitis B as greater than or equal to 10 mIU/mL as per CDC guidelines (MMWR:vol 55: RR-16, 2006). Chris Chino MD CHEMISTRY ORDERABLES Final Result [facility] CLIA# [id number] [address] [place] [address] documented in this encounter Visit Diagnoses Not on filedocumented in this encounter Care Teams Road Engineer Relationship Specialty Start Date End Date Gautam Niño MD [address] [place] [address] PCP - General Family Practice 04/02/18 documented as of this encounter
--- OUTSIDE RECORDS SUMMARY | 2024-08-23 09:45 | XMS_ITS | Clinical Summary ---
Author Organization [facility] Address [address] [place] [address] Care Team Providers Care Residential Life Director Name Role Phone Gautam Niño MD Primary Care Provider [phone] Meaghan Howard MD PhD Unavailable [phone] Allergies No known active allergies Medications albuterol HFA (PROVENTIL HFA,VENTOLIN HFA,PROAIR HFA) 90 mcg/actuation inhaler Inhale 2 puffs every 6 (six) hours as needed Active ALPRAZolam (XANAX) 0.25 mg tablet Take 1 tablet (0.25 mg total) by mouth 2 (two) times a day as needed for anxiety Active beclomethasone dipropionate (QVAR REDIHALER) 80 mcg/actuation inhaler Inhale 2 puffs 2 (two) times a day Active doxycycline 100 mg capsule Take 1 tablet/capsule (100 mg total) by mouth 2 (two) times a day Active ergocalciferol (VITAMIN D) 50,000 unit capsule Take 1 capsule (50,000 Units total) by mouth once a week Active escitalopram (LEXAPRO) 10 mg tablet Take 1 tablet (10 mg total) by mouth daily Active etonogestreL-ethi nyl estradioL (EluRyng) 0.12-0.015 mg/24 hr vaginal ring Insert 1 each into the vagina every 28 (twenty-eight) days Active ferrous sulfate 325 mg (65 mg of elemental iron) tablet Take 1 tablet (325 mg total) by mouth 2 (two) times a day Active fluticasone propionate (FLONASE) 50 mcg/actuation nasal spray Administer 2 sprays into each nostril daily Active HYDROcodone-aceta minophen (NORCO) 5-325 mg per tablet Take 1 tablet by mouth 3 (three) times a day as needed Active Ferrex 150 150 mg iron capsule Take 1 capsule (150 mg total) by mouth daily Active loratadine (CLARITIN) 10 mg tablet Take 1 tablet (10 mg total) by mouth daily as needed for allergies Active traMADoL (ULTRAM) 50 mg tablet Take 1 tablet (50 mg total) by mouth every 8 (eight) hours as needed for pain Active traZODone (DESYREL) 50 mg tablet Take 1 tablet (50 mg total) by mouth nightly Active Active Problems Problem Noted Date Diagnosed Date Asthma 12/23/2023 Family history of Mcallister syndrome 12/23/2023 Iron deficiency anemia 09/24/2023 Major depressive disorder, r ecurrent, in remission, unspecified 04/25/2021 Overview (12/23/2023): F33.40 - Psychiatric - medium low Added by Interface Opioid dependence, uncomplicated 07/26/2020 Overview (12/23/2023): F11.20 - Substance abuse - low Added by Interface Hyperlipidemia 10/01/2016 Nonalcoholic steatohepatitis 10/01/2016 PCOS (polycystic ovarian syndrome) 09/25/2016 Hirsutism 09/25/2016 Immunizations Immunization Administration Dates Next Due DTP 04/11/1993,09/13/1992,02/01/1989 HPV, Quadrivalent 01/08/2007 Hep A, Pediatric 08/19/2002 Hep B, Adolescent or Pediatric 08/19/2002,1996,11/09/1996 Influenza, Quadrivalent, Spl it, Intramuscular 03/02/2020,03/24/2017 Influenza, Trivalent, IM (MDV) 03/30/2018 MMR 04/11/1993,09/13/1992 Moderna SARS-CoV-2 Monovalen t Vaccination (12+ YRS) 06/29/2020 OPV 11/09/1996, 3,09/13/1992,02/01 Pfizer SARS-CoV-2 Monovalent Vaccination (12+ Yrs) PURPLE 07/20/2020,06/29/2020 Rho (D) Immune Globulin 07/14/2017 Rho (D) Immune Globulin, IV or IM 12/14/2016 Td, adsorbed 11/09/1996 Tdap 06/17/2017,01/08/2007 Surgical History Surgery Date Site/Laterality Comments SECTION OVARIAN CYST SURGERY Medical History Medical History Date Comments No known problems Social History Tobacco Use Types Packs/Day Years Used Date Smoking Tobacco: Never Alcohol Use Standard Drinks/Week Comments Not Currently 0 (1 standard drink = 0.6 oz pur e alcohol) Personal Safety Answer Date Recorded Getting School Help Needed Not on file 07/22 Comments Unknown Sex and Gender Information Value Date Recorded Sex Assigned at Not on file 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 Gender Identity Not on file Sexual Orientation Not on file Obstetrics History Last Filed Vital Signs Vital Sign Reading Time Taken Comments Blood Pressure 104/62 11/07/2020 2:45 PM CDT Pulse 69 11/07/2020 2:45 PM CDT Temperature 36.4 C (97.6 F) 11/07/2020 9:46 AM CDT Respiratory Rate 17 11/07/2020 2:45 PM CDT Oxygen Saturation 99% 11/07/2020 2:45 PM CDT Inhaled Oxygen Concentration - - Weight 93 kg (205 lb) 05/15/2017 2:13 PM THERMOSCREW OPERATOR Height 162.6 cm (5' 4.02 ) 05/15/2017 2:13 PM CS T Body Mass Index 35.17 05/15/2017 2:13 PM THERMOSCREW OPERATOR Plan of Treatment Health Maintenance Due Date Last Done Comments Cervical Cancer Screening 1985 Depression Screening 1985 Hepatitis C Screening 1985 Varicella Vaccines (1 of 2 - 13+ 2-dose series) 2000 Regular Well Visit/Exam 18-64 2005 Pneumococcal vaccine <65 (1 of 2 - PCV) 2006 HPV Vaccines (2 - 3-dose series) 02/05/2007 01/09/20 07 Covid-19 Vaccine (2023-2 5 season) 2024 07/20/2020, 06/29/2020, 06/29/2020 Influenza Vaccine (#1) 2024 , 03/30/2018, 03/24/2017 DTaP/Tdap/Td Vaccine (7 - Td or Tdap) 06/17/2027 06/17/2017, 01/08/2007, 11/09/1996, Additional history exists Insurance [facility] Care Teams Residential Life Director Relationship Specialty Start Date End Date Gautam Niño MD PCP - General 05/15/17 [place]han Howard [place] PhD [address] [place] [address] [address] [place] [address] Consulting Physician Medical Oncology 08/20/23
--- OUTSIDE RECORDS SUMMARY | 2024-08-23 09:45 | XMS_ITS | Referral Summary ---
Author Organization [facility] Address [facility] [place] [address] Care Team Providers Care Conference Center Coordinator Name Role Phone Gautam Niño MD Primary Care Provider [phone] Meaghan Howard MD PhD Unavailable [phone] Allergies No known active allergies Medications albuterol [...] IM 12/14/2016 Td, adsorbed 11/09/1996 Tdap 06/17/2017,01/08/2007 Social History Tobacco Use Types Packs/Day Years Used Date Smoking Tobacco: Never Alcohol Use Standard Drinks/Week Comments Not Currently 0 (1 standard drink = 0.6 oz pur e alcohol) Personal Safety Answer Date Recorded Getting School Help Needed Not on file 07/22 Comments Unknown Sex and Gender Information Value Date Recorded Sex Assigned at Not on file Legal Sex Female 11:46 AM HOGSHEAD HOOPER Gender Identity Not on file Sexual Orientation [...] 93 kg (205 lb) 05/15/2017 2:13 PM HOGSHEAD HOOPER Height 162.6 cm (5' 4.02 ) 05/15/2017 2:13 PM CS T Body Mass Index 35.17 05/15/2017 2:13 PM HOGSHEAD HOOPER Plan of Treatment Not on file Insurance [facility]PA [facility] Care Teams Conference Center Coordinator Relationship Specialty Start Date End Date Gautam Niño MD PCP - General 05/15/17 Meaghan Howard MD PhD [id number] [facility] [address] [place] [address] Consulting Physician Medical Oncology 08/20/23
--- OUTSIDE RECORDS SUMMARY | 2024-08-23 09:45 | XMS_ITS | Encounter Summary ---
Author Organization [facility] Address [address] [place] [address] Care Team Providers Care Digital Court Reporter Name Role Phone Gautam Niño MD Primary Care Provider [phone] Encounter Details Date Type Department Care Team (Late st Contact Info) Description 10/11/[address] [facility] [place] [address] [place] [address] Walter Fountain Pipe, DO [address] [place] [address] Social History Tobacco Use Types Packs/Day Years Used Date Smoking Tobacco: Never Assessed Comments Unknown Sex and Gender Information Value Date Recorded Sex Assigned at Not on file Legal Sex Female 3:04 AM IT QUALITY ANALYST Gender Identity Not on file Sexual Orientation Not on file documented as of this encounter Plan of Treatment Not on file documented as of this encounter Visit Diagnoses Not on filedocumented in this encounter Care Teams Digital Court Reporter Relationship Specialty Start Date End Date Gautam Niño MD [address] [place] [address] PCP - General Family Practice 04/02/18 documented as of this encounter
--- OUTSIDE RECORDS SUMMARY | 2024-08-23 09:45 | XMS_ITS | CONTINUITY OF CARE DOCUMENT ---
Author Name raji alegria Address Unknown Organization [facility] Address [address] [place] [address] [address] [place] [address] Phone [phone] Care Team Providers Care Retail Wireless Sales Consultant Name Role Phone SUNDEEP SEGURA MD Unavailable SUNDEEP SEGURA MD Unavailable INSURANCE PROVIDERS Payer name Policy type / Coverage type Marleny red alliance party ID [facility] [facility] [employer] Medicaid 0 [id number]
== END 2024-08-23 08:59 | disposition home or self-care (01) ==
PROVIDERS: PCP Family Medicine; Visit Provider Registered Nurse
DX: M25.562 Pain in left knee (principal)
CPT/HCPCS: 73564

== ENCOUNTER 2024-11-11 09:01 | Outpatient (CLI) | payer OTHER, SELFPAY ==
--- OUTSIDE RECORDS SUMMARY | 2024-11-11 09:29 | XMS_ITS | Clinical Summary ---
Author Organization [facility] Care Team Providers Care Retail Beauty Specialist Name Role Phone Unavailable Primary Care Provider Unavailabl e Social History Tobacco Use Types Packs/Day Years Used Date Smoking Tobacco: Never Assessed Comments Unknown Sex and Gender Information Value Date Recorded Sex Assigned at Not on file Legal Sex Female 1:29 PM PEDIATRIC RADIOLOGIST Gender Identity Not on file Sexual Orientation [...]
--- NOTE | 2024-11-11 09:35 | EST_ITS ---
Patient Info Name: Yodit Foss Age: 39 years : 1985 Gender: Female Ht: 64 in Wt: 193 lbs BSA: 2.02 m2 Exam Date: 11/11/2024 9:35 AM Patient Status: O Admit Date: 11/11/2024 Exam Type: CA stress test treadmill A treadmill exercise stress test was performed. Staff Attending Provider: Justin Perrin DO Exercise Technologist: Valorie Schultz Exercise Physician: Justin Perrin DO Summary 1. 1. Negative [place] exercise stress test for ischemic ST changes by ECG criteria. 2. 2. Reduced functional capacity, achieving 7 METs of workload. 3. 3. Appropriate HR response to exercise. 4. 4. Appropriate HR recovery at 1 minute post exercise. 5. 5. No imaging with stress testing. 6. 6. Patient informed of the above results. Protocol: [place] Stress ECG Details Stage: REST Duration (min): 0 min : 39 sec Speed (mph): 0.0 Grade (%): 0 HR (bpm): 79 SBP (mmHg): 122 DBP (mmHg): 83 METS: --- Stage: REST Duration (min): 6 min : 1 sec Speed (mph): 0.0 Grade (%): 0 HR (bpm): 89 SBP (mmHg): 122 DBP (mmHg): 83 METS: --- Stage: STAGE 1 Duration (min): 1 min : 0 sec Speed (mph): 1.7 Grade (%): 10 HR (bpm): 121 SBP (mmHg): 122 DBP (mmHg): 83 METS: --- Stage: STAGE 1 Duration (min): 2 min : 0 sec Speed (mph): 1.7 Grade (%): 10 HR (bpm): 130 SBP (mmHg): 122 DBP (mmHg): 83 METS: --- Stage: STAGE 1 Duration (min): 3 min : 0 sec Speed (mph): 1.7 Grade (%): 10 HR (bpm): 132 SBP (mmHg): 143 DBP (mmHg): 75 METS: --- Stage: STAGE 2 Duration (min): 1 min : 0 sec Speed (mph): 2.5 Grade (%): 12 HR (bpm): 154 SBP (mmHg): 143 DBP (mmHg): 75 METS: --- Stage: STAGE 2 Duration (min): 2 min : 0 sec Speed (mph): 2.5 Grade (%): 12 HR (bpm): 167 SBP (mmHg): 170 DBP (mmHg): 81 METS: --- Stage: STAGE 2 Duration (min): 3 min : 0 sec Speed (mph): 2.5 Grade (%): 12 HR (bpm): 166 SBP (mmHg): 170 DBP (mmHg): 81 METS: --- Stage: RECOVERY Duration (min): 0 min : 59 sec Speed (mph): 0.0 Grade (%): 0 HR (bpm): 122 SBP (mmHg): 138 DBP (mmHg): 72 METS: --- Stage: RECOVERY Duration (min): 1 min : 59 sec Speed (mph): 0.0 Grade (%): 0 HR (bpm): 93 SBP (mmHg): 138 DBP (mmHg): 72 METS: --- Stage: RECOVERY Duration (min): 2 min : 59 sec Speed (mph): 0.0 Grade (%): 0 HR (bpm): 87 SBP (mmHg): 142 DBP (mmHg): 74 METS: --- Stage: RECOVERY Duration (min): 3 min : 1 sec Speed (mph): 0.0 Grade (%): 0 HR (bpm): 87 SBP (mmHg): 142 DBP (mmHg): 74 METS: --- Rest HR: 89 bpm Peak HR: 169 bpm Rest Sys BP: 122 mmHg Peak Sys BP: 170 mmHg Max Pred HR: 183 bpm % Max Pred HR: 92 % Target HR: 156 bpm Max RPP: 28,730 bpm*mmHg Posadas Score: -1 Termination Reason: Reached target heart rate or workload Cardiac Symptoms: Shortness of breath Max ST Seg Deviation: -1.30 mm Total Time: 6 min : 0 sec Rest Brown BP: 83 mmHg Peak Brown BP: 81 mmHg Angina Score: None Total METS: 7.1 Resting ECG Sinus rhythm. Stress ECG No ST changes. Arrhythmias None. Report Signatures
== END 2024-11-11 09:02 | disposition home or self-care (01) ==
PROVIDERS: PCP Family Medicine; Visit Provider Internal Medicine Cardiovascular Disease
DX: R07.9 Chest pain, unspecified (principal)
CPT/HCPCS: 93017

== ENCOUNTER 2025-02-27 11:57 | Emergency (ER) | payer OTHER, SELFPAY ==
[2025-02-27 12:04] VITALS: BP 118/80; PULSE 77; RESP 16; TEMP 37.2; O2SAT 100
--- NOTE | 2025-02-27 12:47 | ED_ITS ---
HPI - Ear Problem General Chief complaint: Ear Stated complaint: Left Ear Irritation Time Seen by Provider: 02/27/25 12:30 Source: patient Mode of arrival: ambulatory Limitations: no limitations History of Present Illness HPI Narrative: 39 year old female who presents to [facility] care with 2 day history of left ear irritation and discomfort with ear feeling swollen on the inside and painful to touch. Patient reports that she has not had any recent cold symptoms denies any fevers or chills. Patient reports that she is travel to [place] this next week and is concerned with symptoms. Patient reports that she takes Hydrocodone at night due to chronic back pain which did also help her ear pain. MD Complaint: ear pain Location: left ear Duration: constant Severity: moderate Discharge from ear: Reports no Treatment prior to arrival: oral analgesic Related Data Home Medications ?Medication ?Instructions ?Recorded ?Confirmed ?Last Taken ?Type hydrocodone 5 mg-acetaminophen 325 1 tablet PO TID ann marie n 12/02/23 12/31/24 Unknown History mg tablet iron sucrose 100 mg iron/5 mL 100 mg IV 3XW 09/09/24 0 12/31/24 Unknown History intravenous solution cyanocobalamin (vitamin B-12) 1,000 mcg PO DAILY 02/27 Unknown History 1,000 mcg capsule multivitamin (Daily Multi-Vitamin 1 tablet PO DAILY Unknown History tablet) semaglutide 1 mg/dose (4 mg/3 mL) 1 mg subcut WEEKLY 0 02/27/25 Unknown History subcutaneous pen injector (Ozempic) Allergies Allergy/AdvReac Type Severity Reaction Status Date / Time No Known Allergies Allergy Verified 02/27/25 12:07 Review of Systems Review of Systems: CONSTITUTIONAL: Denies malaise, chills, sweats, or fever. EYES: Denies visual changes, redness, or discharge. ENT: Reports rhinorrhea, congestion, sinus pain, positive for left otalgia and no sore throat. CARDIOVASCULAR: Denies chest pain, palpitations, or edema. RESPIRATORY: Reports no cough.? Denies dyspnea. GASTROINTESTINAL: Denies abdominal pain, nausea, vomiting, diarrhea SKIN: Denies rash or itching. MUSCULOSKELETAL: Denies myalgia. NEUROLOGIC: Denies headache. All systems reviewed & are unremarkable except as noted in HPI and below PMFSH Past Medical History Medical History History of ovarian cyst History of x2 Pneumonia Anemia Surgical History Surgical History H/O tubal ligation History of right oophorectomy History of laparoscopy x 2 History of section x 4 Family History Family History Grandparent Breast cancer Other Breast cancer Social History Social History Smoking status: Never smoker Alcohol intake: never Substance use: never Substance use type: does not use Living arrangements: with family Gender identity (if verbalized by the patient): Female Spiritual care concerns: No Comments At time of signature, agree with nursing past medical, surgical, social and family history. There is no relevant family history pertinent to the presenting complaint Exam Narrative: GENERAL: Well-appearing, well-nourished, and in no acute distress. HEAD: Normocephalic EYES: PERRLA, conjunctivae clear ENT: Nares clear, turbinates edematous and erythematous, clear discharge. Mucous membranes moist. Left TM red and canal is also red and swollen with no drainage noted , RightTM pearly pagan with dull light reflex, Left tragal tenderness. Laisha pharynx erythematous without lesions. Tonsils not enlarged and without exudate, no drooling, no hoarseness, no trismus, uvula midline. NECK: Supple. No lymphadenopathy CHEST: Clear to auscultation, breath sounds equal. No wheezing, rhonchi, rales, or stridor. No respiratory distress, speaks in full sentences.SAO2 100% on room air HEART: Regular rate and rhythm. No murmur heard. SKIN: Warm, dry, no rash. NEURO: Alert and oriented x3. PSYCH: Normal mood and affect Course Course Emergency Course: Patient is aware of diagnosis, understands and agrees to treatment plan.? Anticipatory guidance given.? Patient agrees to follow-up as directed and is aware of reasons to seek care at the emergency department. Portions of this record may have been created with voice recognition software Level of Care: Express Care Visit Vital Signs Vital signs: Vital Signs Temperature 37.2 C 02/27/25 12:04 Pulse Rate 77 02/27/25 12:04 Respiratory Rate 16 02/27/25 12:04 Blood Pressure 118/80 02/27/25 12:04 Pulse Oximetry 100 02/27/25 12:04 Oxygen Delivery Room Air 02/27/25 12:04 Temperature 37.2 C 02/27/25 12:04 Pulse Rate 77 02/27/25 12:04 Respiratory Rate 16 02/27/25 12:04 Blood Pressure 118/80 02/27/25 12:04 Pulse Oximetry 100 02/27/25 12:04 Oxygen Delivery Room Air 02/27/25 12:04 Reviewed Medical Decision Making Differential Diagnosis Differential Diagnosis: otitis media left ear, otitis externa left ear, otalgia left ear Medical Records Medical records reviewed: Yes I reviewed the external patient's medical records. Vital Signs Vital Signs: Vital Signs Temperature 37.2 C 02/27/25 12:04 Pulse Rate 77 02/27/25 12:04 Respiratory Rate 16 02/27/25 12:04 Blood Pressure 118/80 02/27/25 12:04 Pulse Oximetry 100 02/27/25 12:04 Oxygen Delivery Room Air 02/27/25 12:04 Temperature 37.2 C 02/27/25 12:04 Pulse Rate 77 02/27/25 12:04 Respiratory Rate 16 02/27/25 12:04 Blood Pressure 118/80 02/27/25 12:04 Pulse Oximetry 100 02/27/25 12:04 Oxygen Delivery Room Air 02/27/25 12:04 reviewed Critical Care Time Critical Care Time Critical Care Time: No Discharge Plan Discharge Clinical Impression: Acute left otitis media Diffuse otitis externa, left ear Qualifiers: Chronicity: acute Qualified Code(s): H60.312 - Diffuse otitis externa, left ear Patient Disposition: Home Condition: Stable Instructions: Antibiotic Form, Ear Infection (GEN) Additional Instructions: Increase fluids especially juices and water [id number] cough and cold medicine of your choice for your symptoms Zyrtec Claritin or Kezia daily may include plain Sudafed in a.m. heat to the face 20-30 minutes 4-6 times a day for pain Salt water gargles, throat lozenges or throat sprays as desired Antibiotic as directed--finished the medication Antibiotic ear drops to left ear as prescribed for 7 days If your symptoms persist, change or worsen significantly before you can contact your personal physician then please, without delay, go to the emergency department for further evaluation. Follow-up with PCP in 7-10 days or sooner if needed Patient Language: Arabic Prescriptions: New amoxicillin-pot clavulanate 875-125 mg tablet 1 tablet PO Q12H Qty: 20 0RF Rx Instructions: Take all doses of oral medication as prescribed take with food recommend taking probiotic while on this medication ofloxacin 0.3 % drops 5 drp LEFT EAR BID 7 Days Qty: 10 0RF No Action hydrocodone-acetaminophen 5-325 mg tablet 1 tablet PO TID Ozempic 1 mg/dose (4 mg/3 mL) pen injector 1 mg subcut WEEKLY cyanocobalamin (vitamin B-12) 1,000 mcg capsule 1,000 mcg PO DAILY multivitamin [Daily Multi-Vitamin] Tablet 1 tablet PO DAILY iron sucrose 100 mg iron/5 mL solution 100 mg IV 3XW Rx Instructions: administer over 2-5 mins Follow-up/Referrals: Gautam Niño MD [Primary Care Provider, [facility]] Time of Disposition: 12:59 Quality Bonita Coma Scale Eyes: Open Verbal: Oriented and Alert Motor: Follows Commands Alida Coma Total Score: 15
== END 2025-02-27 13:09 | disposition home or self-care (01) ==
PROVIDERS: Emergency Provider Registered Nurse; PCP Family Medicine
DX: H66.92 Otitis media, unspecified, left ear (principal); H60.312 Diffuse otitis externa, left ear
CPT/HCPCS: 99213; G0463